=== PATIENT | female | born 1955 | race Caucasian/White ===

== ENCOUNTER → 2020-08-07 11:59 | Outpatient (BNVA) | payer MEDICARE, SELFPAY | PROVIDERS: Visit Provider Nurse Practitioner Family | DX: E55.9 Vitamin D deficiency, unspecified (principal); E03.9 Hypothyroidism, unspecified; E78.2 Mixed hyperlipidemia; Z79.899 Other long term (current) drug therapy | CPT/HCPCS: 80053; 80061; 81003; 82306; 83036; 83735; 84100; 84443; 85025 ==

== ENCOUNTER → 2020-08-25 11:03 | Outpatient (BNVA) | payer MEDICARE, OTHER, SELFPAY | PROVIDERS: Visit Provider Internal Medicine | DX: E03.9 Hypothyroidism, unspecified (principal); E78.2 Mixed hyperlipidemia; R63.5 Abnormal weight gain; Z78.0 Asymptomatic menopausal state | CPT/HCPCS: 99204 ==

== ENCOUNTER → 2020-09-15 08:17 | Outpatient (BNVA) | payer MEDICARE, OTHER, SELFPAY | PROVIDERS: Visit Provider Internal Medicine | DX: E03.9 Hypothyroidism, unspecified (principal); R63.5 Abnormal weight gain; Z78.0 Asymptomatic menopausal state | CPT/HCPCS: 82530; 82570 ==

== ENCOUNTER 2020-10-14 15:20 | Outpatient (CLI) | payer MEDICARE, OTHER, SELFPAY ==
--- NOTE | 2020-10-14 15:45 | XR_ITS ---
WS: [id number] SCREENING DEXA SCAN [employer] CLINICAL INFORMATION: assess for osteoporosis COMPARISON: None. FINDINGS: The L1-L4 bone mineral density measures 1.033 g/cm2. This corresponds to a T score score of -1.2 and Z score of -0.7. Left femoral neck bone mineral density measures 0.864 g/cm2. This corresponds to a T score of -1.1 an d Z score of -0.7. Right femoral neck bone mineral density measures 0.861 g/cm2. This corresponds to a T score -1.2of an d Z score of -0.7. Mean femoral neck bone mineral density measures 0.863 g/cm2. This corresponds to a T score of -1.2 an d Z score of -0.7. XR/XR DEXA axial skeleton* [id number] IMPRESSION: Osteopenia in the lumbar spine and femoral necks. Patient's FRAX calculated 10 year probability for major osteoporotic fracture i s 10.1 % and osteoporotic hip fracture is 1.5%.
== END 2020-10-14 15:21 | disposition home or self-care (01) ==
LOC: RADWPI 15:27
PROVIDERS: PCP Nurse Practitioner Family; Visit Provider Internal Medicine
DX: Z78.0 Asymptomatic menopausal state (principal); R63.5 Abnormal weight gain; E03.9 Hypothyroidism, unspecified; M85.88 Other specified disorders of bone density and structure, other site
CPT/HCPCS: 77080; 84439; 84443

== ENCOUNTER → 2021-02-18 10:54 | Outpatient (BNVA) | payer MEDICARE, OTHER, SELFPAY | PROVIDERS: PCP Nurse Practitioner Family; Visit Provider Nurse Practitioner Family | DX: E55.9 Vitamin D deficiency, unspecified (principal); E03.9 Hypothyroidism, unspecified; E78.2 Mixed hyperlipidemia; Z79.899 Other long term (current) drug therapy | CPT/HCPCS: 80053; 80061; 81003; 82306; 83036; 84439; 84443; 84481; 85025 ==

== ENCOUNTER 2021-04-01 11:59 | Outpatient (CLI) | payer MEDICARE, OTHER, SELFPAY ==
[2021-04-01 12:59] LABS: Basophils % 0.7 %; Eosinophils # 0.1 10^3/uL (0.0-0.8); Eosinophils % 1.8 %; Hematocrit 48.9 % (37.0-47.0); Hemoglobin 15.3 g/dL (11.5-15.3); Lymphocytes # 2.1 10^3/uL (0.8-4.8); Lymphocytes % 35.6 %; Mean Corpuscular HGB Conc 31.3 g/dL (30.0-36.0); Mean Corpuscular Hemoglobin 27.3 pg (28.0-34.0); Mean Corpuscular Volume 87.2 fL (81-99); Mean Platelet Volume 9.9 fL (7.4-10.4); Monocytes # 0.5 10^3/uL (0.2-0.9); Monocytes % 8.2 %; Neutrophils # 3.22 10^3/uL (1.8-7.7); Neutrophils % 53.5 %; Nucleated Red Blood Cells % 0 %; Platelet Count 269 10^3/cmm (130-400); Red Blood Count 5.61 10^6/uL (4.1-5.3); Red Cell Distribution Width 12.9 % (12.1-15.1)
[2021-04-02 16:42] LABS: Alternaria Alternata (M6) Ige 1.86 kU/L; Alternaria Class 2; Bermuda Class 0; Bermuda Grass (G2) Ige <0.10 kU/L; Cat Dander (E1) Ige <0.10 kU/L; Cat Dander Class 0; Common Ragweed (Short) (W1) Ig 0.21 kU/L; D. Farinae Class 0; Dermatophagoides Class 0; Dermatophagoides Farinae (D2) <0.10 kU/L; Dermatophagoides Pteronyssinus <0.10 kU/L; Dog Dander (E5) Ige <0.10 kU/L; Dog Dander Class 0; Elm (T8) Ige <0.10 kU/L; Elm Class 0; English Plantain (W9) Ige <0.10 kU/L; English Plantain Class 0; House Dust (Greer) (H1) Ige <0.10 kU/L; House Dust (Hollister- Stier) <0.10 kU/L; House Dust Class 0; Immunoglobulin E 63 kU/L (<OR=114); Johnson Grass (G10) Ige <0.10 kU/L; Johnson Grass Cl 0; June Grass Class 0; June Grass(Kentucky Blue) (G8) <0.10 kU/L; Lamb'S Quarters (Goose Foot) <0.10 kU/L; Lamb'S Quarters Class 0; Maple (Box Elder) (T1) Ige <0.10 kU/L; Maple Class 0; Meadow Fescue (G4) Ige <0.10 kU/L; Meadow Fescue Class 0; Mucor Racemosus Class 0; Oak (T7) Ige <0.10 kU/L; Oak Class 0; Orchard Grass (Cocksfoot) (G3) <0.10 kU/L; Penicillium Class 0; Penicillium Notatum (M1) Ige <0.10 kU/L; Perennial Rye Grass (G5) Ige <0.10 kU/L; Perennial Rye Grass Class 0; Ragweeed Class 0/1; Rough Marsh Elder (W16) Ige <0.10 kU/L; Rough Marsh Elder Class 0; Sweet Vernal Class 0; Sweet Vernal Grass (G1) Ige <0.10 kU/L; Timothy Grass (G6) Ige <0.10 kU/L; Timothy Grass Class 0
[2021-04-02 18:23] LABS: Immunoglobulin E 67 kU/L (<OR=114)
[2021-04-05 22:28] LABS: Aspergillus Fumigatus, Igg Ab, 122 mg/L (<=102)
== END 2021-04-01 12:00 | disposition home or self-care (01) ==
PROVIDERS: PCP Nurse Practitioner Family; Visit Provider Internal Medicine Pulmonary Disease
DX: J45.909 Unspecified asthma, uncomplicated (principal); R06.00 Dyspnea, unspecified
CPT/HCPCS: 36415; 82785; 85025; 86003

== ENCOUNTER → 2021-05-21 15:31 | Outpatient (BNVA) | payer MEDICARE, OTHER, SELFPAY | PROVIDERS: PCP Nurse Practitioner Family; Visit Provider Internal Medicine Pulmonary Disease | DX: Z20.822 Contact with and (suspected) exposure to COVID-19 (principal) | CPT/HCPCS: 87635 ==

== ENCOUNTER 2021-05-24 10:54 | Outpatient (CLI) | payer MEDICARE, OTHER, SELFPAY ==
--- NOTE | 2021-05-24 14:01 | PFTS_ITS ---
Date of Study:05/24/21 Date of Dictation: MECHANICS: Forced vital capacity (FVC) is normal. Forced expiratory volume in one second (FEV1) is normal. FEV1/FVC is normal. FLOW VOLUME LOOP: Normal. LUNG VOLUMES: Total lung capacity (TLC) is reduced. Residual volume (RV) is reduced. DIFFUSING CAPACITY FOR CARBON MONOXIDE: Mildly reduced. INTERPRETATION: The postbronchodilator spirometry is normal. There is a significant postbronchodilator response. Lung volumes are consistent with mild restriction. Gas exchange (DLCO) is mildly reduced. The pulmonary function test is very suggestive of reversible airflow obstruction. MTDD
== END 2021-05-24 10:55 | disposition home or self-care (01) ==
PROVIDERS: PCP Nurse Practitioner Family; Visit Provider Internal Medicine Pulmonary Disease
DX: R06.00 Dyspnea, unspecified (principal)
CPT/HCPCS: 94060; 94726; 94729; J7611

== ENCOUNTER → 2021-07-28 11:14 | Outpatient (BNVA) | payer MEDICARE, OTHER, SELFPAY | PROVIDERS: PCP Nurse Practitioner Family; Visit Provider Nurse Practitioner Family | DX: L98.9 Disorder of the skin and subcutaneous tissue, unspecified (principal); E03.9 Hypothyroidism, unspecified; E78.5 Hyperlipidemia, unspecified; E55.9 Vitamin D deficiency, unspecified; B35.1 Tinea unguium; Z79.899 Other long term (current) drug therapy | CPT/HCPCS: 80053; 80061; 81003; 82306; 83036; 84439; 84443; 85025 ==

== ENCOUNTER → 2022-06-29 08:56 | Outpatient (BNVA) | payer OTHER, MEDICARE, SELFPAY | PROVIDERS: PCP Nurse Practitioner Family; Visit Provider Nurse Practitioner | DX: M25.562 Pain in left knee (principal) | CPT/HCPCS: 73562 ==

== ENCOUNTER → 2022-08-09 14:36 | Outpatient (BNVA) | payer OTHER, MEDICARE, SELFPAY | PROVIDERS: PCP Nurse Practitioner; Visit Provider Nurse Practitioner | DX: E03.9 Hypothyroidism, unspecified (principal); L65.9 Nonscarring hair loss, unspecified | CPT/HCPCS: 84443 ==

== ENCOUNTER 2022-08-30 10:26 | Outpatient (CLI) | payer OTHER, SELFPAY ==
--- NOTE | 2022-08-30 11:00 | MR_ITS ---
WS: [id number] MRI LEFT KNEE HISTORY: Anterior knee pain. COMPARISON: Radiograph 06/29/2022 Anterior cruciate ligament: Mild mucoid degeneration. No tear. Posterior cruciate ligament: Intact. Medial collateral ligament: Mild MCL sprain. No full thickness tear. Posterior lateral corner structures: Intact. Medial menisci: Increased signal in the posterior horn but does not extend to the articular surface. Lateral meniscus: Intrasubstance degeneration in the anterior horn. The increased signal does not ext end to an articular surface. Extensor mechanism: Distal quadriceps tendon and patellar tendons are intact. Fluid and soft tissue: Small joint effusion. Small Reyes's cyst. Osseous and articular structures: Patellofemoral compartment: Severe patellofemoral joint space narrowing. Mild lateral subluxation of the patella. Loss of cartilage. There is cartilage loss involving both the femoral and patellar side of the joint space. Medial compartment: Mild narrowing of the joint space. Mild diffuse chondromalacia. Small marginal os teophytes. No fracture. Lateral compartment: Mild narrowing of the lateral compartment with diffuse thinning and loss of cart ilage. No marrow edema. Varicosities are noted over the anterior knee. MR/MR knee LT wo con* [id number] IMPRESSION: 1. Severe patellofemoral osteoarthritis with mild lateral subluxation of the p atella. Complete loss of cartilage along the articular surfaces. 2. Mild narrowing of the medial and lateral compartments mild to moderate allie dromalacia. 3. Intrasubstance degeneration in the menisci but no definite tears. 4. Intrasubstance degeneration ACL. 5. Small Reyes's cyst.
== END 2022-08-30 10:27 | disposition home or self-care (01) ==
LOC: RAD 10:26
PROVIDERS: PCP Nurse Practitioner; Visit Provider Nurse Practitioner
DX: S86.919A Strain of unspecified muscle(s) and tendon(s) at lower leg level, unspecified leg, initial encounter (principal); M71.22 Synovial cyst of popliteal space [Baker], left knee; M17.12 Unilateral primary osteoarthritis, left knee; X58.XXXA Exposure to other specified factors, initial encounter
CPT/HCPCS: 73721

== ENCOUNTER → 2022-11-02 11:20 | Outpatient (BNVA) | payer MEDICARE, OTHER, SELFPAY | PROVIDERS: PCP Nurse Practitioner; Visit Provider Nurse Practitioner | DX: R50.9 Fever, unspecified (principal) | CPT/HCPCS: 87400 ==

== ENCOUNTER → 2022-12-13 10:22 | Outpatient (BNVA) | payer OTHER, SELFPAY | PROVIDERS: PCP Nurse Practitioner; Visit Provider Nurse Practitioner Family | DX: S89.92XA Unspecified injury of left lower leg, initial encounter (principal); W18.40XA Slipping, tripping and stumbling without falling, unspecified, initial encounter | CPT/HCPCS: 73560; 73565 ==

== ENCOUNTER → 2023-10-25 09:40 | Outpatient (BNVA) | payer MEDICARE, OTHER, BC, SELFPAY | PROVIDERS: PCP Nurse Practitioner; Visit Provider Nurse Practitioner Family | DX: E03.9 Hypothyroidism, unspecified (principal); E78.5 Hyperlipidemia, unspecified; Z79.899 Other long term (current) drug therapy; E55.9 Vitamin D deficiency, unspecified; E78.2 Mixed hyperlipidemia; R53.83 Other fatigue | CPT/HCPCS: 80053; 80061; 82306; 83036; 84443; 85025 ==

== ENCOUNTER → 2023-11-23 10:48 | Outpatient (BNVA) | payer MEDICARE, OTHER, SELFPAY | PROVIDERS: PCP Nurse Practitioner; Visit Provider Nurse Practitioner Family | DX: D22.5 Melanocytic nevi of trunk (principal); L57.8 Other skin changes due to chronic exposure to nonionizing radiation; L81.4 Other melanin hyperpigmentation; B07.0 Plantar wart | CPT/HCPCS: 99213 ==

== ENCOUNTER → 2023-12-05 13:14 | Outpatient (BNVA) | payer MEDICARE, OTHER, SELFPAY | PROVIDERS: Absent Provider Family Medicine Adult Medicine; PCP Nurse Practitioner Family; Visit Provider Podiatrist Foot & Ankle Surgery | DX: B07.9 Viral wart, unspecified (principal) | CPT/HCPCS: 17110; 99203 ==

== ENCOUNTER → 2024-01-23 13:09 | Outpatient (BNVA) | payer MEDICARE, OTHER, SELFPAY | PROVIDERS: Absent Provider Family Medicine Adult Medicine; PCP Nurse Practitioner Family; Visit Provider Student in an Organized Health Care Education/Training Program | DX: M17.0 Bilateral primary osteoarthritis of knee | CPT/HCPCS: 20610; 73560; 73565; 99214; J3301 ==

== ENCOUNTER → 2024-05-14 11:08 | Outpatient (BNVA) | payer MEDICARE, OTHER, SELFPAY | PROVIDERS: PCP Nurse Practitioner Family; Visit Provider Student in an Organized Health Care Education/Training Program | DX: M17.0 Bilateral primary osteoarthritis of knee (principal); Z01.818 Encounter for other preprocedural examination | CPT/HCPCS: 99214 ==

== ENCOUNTER → 2024-06-19 09:34 | Outpatient (BNVA) | payer MEDICARE, OTHER, SELFPAY | PROVIDERS: PCP Nurse Practitioner Family; Visit Provider Student in an Organized Health Care Education/Training Program | DX: Z01.818 Encounter for other preprocedural examination (principal); Z79.899 Other long term (current) drug therapy | CPT/HCPCS: 80053; 81000; 85025 ==

== ENCOUNTER 2024-06-25 09:43 | Outpatient (CLI) | payer MEDICARE, OTHER, SELFPAY ==
--- NOTE | 2024-06-25 10:00 | CT_ITS ---
WS: [id number] CT RIGHT knee, noncontrast HISTORY: RIGHT TOTAL KNEE ARTHROPLASTY TECHNIQUE: Protocol for [facility] total knee replacement has been obtained. This includes axial imaging th rough the RIGHT hip, RIGHT knee and RIGHT ankle. DLP: 979.01 mGy.cm COMPARISON: Knee radiograph 01/23/2024 Pelvis: Symmetric appearance of the hips. There is mild motion artifact. This is predominately affect ing the LEFT hip. Bone island in the RIGHT femoral head. RIGHT knee: Joint space narrowing. Lateral partial subluxation of the patella. There is near bone upo n bone in the lateral patellofemoral compartment. No significant joint effusion. There is a small Damaris er's cyst. Negative RIGHT ankle. CT/CT knee RT [facility] [id number] IMPRESSION: CT imaging provided for [facility] robotic total knee replacement.
== END 2024-06-25 09:44 | disposition home or self-care (01) ==
LOC: RAD 09:44
PROVIDERS: PCP Nurse Practitioner Family; Visit Provider Student in an Organized Health Care Education/Training Program
DX: M17.0 Bilateral primary osteoarthritis of knee (principal); Z01.818 Encounter for other preprocedural examination
CPT/HCPCS: 73700; 93005

== ENCOUNTER 2024-07-08 13:09 | Observation (INO) | payer MEDICARE, OTHER, SELFPAY ==
[2024-07-08] VITALS (17 sets, daily range): BP systolic 110–157; BP diastolic 67–115; PULSE 59–84; RESP 14–18; TEMP 36.2–36.6; O2SAT 93–98; BMI 38.5
[2024-07-08] MEDS: scopolamine 1.5 Patch 1 PATCH TRANSDERMA (08:17)
[2024-07-08] MEDS: lactated ringers 500 ML IV (08:23)
[2024-07-08] MEDS: acetaminophen 1,000 MG/100 ML PIGGYBACK 400 MG IV ×2 (08:24→16:43)
[2024-07-08] MEDS: ketorolac 30 mg/mL INJ IVP (08:25)
[2024-07-08 08:44] LABS: Basophils % 0.6 %; Eosinophils # 0.2 10^3/uL (0.0-0.8); Eosinophils % 2.9 %; Hematocrit 51.3 % (36-47); Lymphocytes # 1.5 10^3/uL (0.8-4.8); Lymphocytes % 29.4 %; Mean Corpuscular HGB Conc 32.9 g/dL (30-55); Mean Corpuscular Hemoglobin 29.5 pg (27-33); Mean Corpuscular Volume 89.7 fl (85-98); Mean Platelet Volume 9.9 fL (7.4-10.4); Monocytes # 0.5 10^3/uL (0.2-0.9); Neutrophils # 2.96 10^3/uL (1.8-7.7); Neutrophils % 56.7 %; Nucleated Red Blood Cells % 0 %; Platelet Count 250 10^3/cmm (157-399); Red Blood Count 5.72 10^6/uL (3.85-5.65); Red Cell Distribution Width 12.2 % (12.1-15.1); White Blood Count 5.21 10^3/uL (3.29-11.43)
[2024-07-08] MEDS: sodium chloride 0.9% 1,000 ML 30 ML IV (09:21)
[2024-07-08 09:27] LABS: Anion Gap 15.5 (5-19); Blood Urea Nitrogen 11 mg/dL (8-23); Calcium 9.2 mg/dL (8.5-10.5); Carbon Dioxide 25 mmol/L (22-29); Chloride 106 mmol/L (98-107); Creatinine Clr Calc Pharmacy 71.6061; Glomerular Filtration Rate 99.1 mL/min (90-130); Glucose 108 mg/dL (65-115); Osmolality Calculated 294 mOsm/kg (285-295); Potassium 4.5 mmol/L (3.5-5.1); Sodium 142 mmol/L (136-145)
--- NOTE | 2024-07-08 09:35 | P.ANESASSM_ITS ---
Pre-Anesthetic Assessment Height/Weight: Height 1.57 m Weight 95.708 kg Temp Pulse Resp BP Pulse Ox O2 Del Method 97.6 F 70 18 157/87 94 Room Air 07/08/24 08:05 07/08/24 09:21 07/08/24 09:21 07/08/24 09:21 07/08/24 09:21 07/08/24 09:21 Operation Date: 07/08/24 09:35 Proposed Procedures p Balta Robot Total Knee Arthroplasty(Right) - Philip Browne DO Familial anesthetic complications: None Was Beta Golden taken within 24 hours: N/A Was Clonidine taken within 24 hours: N/A Last intake: > 8 hrs Social Alcohol (glass of wine per night) and No alcohol Exam alert, oriented x 3, clear to auscultation bilaterally and regular rate & rhythm Airway Mallampati: Class II Pulmonary Chronic Obstructive Pulmonary Disease Metabolic Hyperlipidemia, Morbid Obesity and Thyroid Disease Anesthetic Plan ASA status: 3 Anesthesia: Regional (specify below) Risk of > 500 ml blood loss (7ml/kg in children): No Medications/Allergies Home Medications Medication Instructions Recorded Confirmed Last Taken Type coenzyme Q10 100 mg capsule 100 mg PO DAILY 08/07/20 07/05/24 07/06/24 History (CoQ-10) glucosamine sulfate 500 mg tablet 500 mg PO BID 08/07/20 07/05/24 07/06/24 History (Glucosamine) omega-3 fatty acids 1,000 mg 1,000 mg PO DAILY 08/07/20 07/05/24 07/01/24 History capsule (Fish Oil Concentrate) albuterol sulfate 2.5 mg/3 mL 2.5 mg inhalation Q4H PRN sob 04/01/21 07/05/24 Unknown History (0.083 %) solution for nebulization biotin 2,500 mcg capsule 5 mg PO DAILY 11/23/23 07/05/24 07/06/24 History calcium carbonate 600 mg-vitamin 600 cap PO DAILY 11/23/23 07/05/24 07/06/24 History D3 10 mcg (400 unit) capsule flaxseed oil-omega 3,6,9-fatty 1,300 cap PO DAILY 11/23/23 07/05/24 07/01/24 History acids 1,300 mg-670 mg-155 mg capsule mecobalamin (vitamin B12) 1,000 1,000 mcg PO DAILY 11/23/23 07/05/24 07/06/24 History mcg chewable tablet multivitamin 1 tab PO DAILY 11/23/23 07/05/24 07/06/24 History riboflavin (vitamin B2) 100 mg 100 mg PO DAILY 11/23/23 07/05/24 07/05/24 History tablet levothyroxine 112 mcg tablet 112 mcg PO DAILY 07/05/24 07/05/24 07/06/24 History montelukast 10 mg tablet 10 mg PO DAILY 07/05/24 07/05/24 07/06/24 History simvastatin 40 mg tablet 40 mg PO DAILY 07/05/24 07/05/24 07/05/24 History Allergies Allergy/AdvReac Type Severity Reaction Status Date / Time codeine Allergy Intermediate sick Verified 06/25/24 08:20 morphine Allergy Intermediate sick Verified 06/25/24 08:20 Opioids - Morphine Analogues Allergy Intermediate sick Verified 06/25/24 08:20 Penicillins Allergy rash Verified 06/25/24 08:20 tetanus and diphtheria Allergy ALGY-Redness Verified 06/25/24 08:20 toxoids of Skin bee Allergy anaphylaxis Uncoded 06/25/24 08:20 fire ants Allergy anaphylaxis Uncoded 06/25/24 08:20 Current Medications Generic Name Dose Route Start Last Admin Trade Name Freq PRN Reason Stop Dose Admin Sodium Chloride 1,000 mls @ 30 mls/hr 07/08/24 08:00 07/08/24 09:21 Sodium Chloride 0.9% IV 07/09/24 07:59 30 mls/hr .Q24H SONY Administration PFSH Anesthesia Medical History Osteoarthritis involving multiple joints on both sides of body bilateral knees, Seasonal allergic rhinitis COPD (chronic obstructive pulmonary disease) Vitamin D deficiency Hypothyroidism Mixed hyperlipidemia Surgical History H/O lumpectomy Right S/P breast biopsy, left Family History Mother Cancer breast Father Cancer lung CAD (coronary artery disease) Sister Cancer anal Sister Cancer Mother Cancer breast Father Cancer lung and bladder CAD (coronary artery disease) Sister Cancer rectal Sister Cancer melanoma or basal on breast bone Social History Smoking and tobacco/nicotine status: never used tobacco/nicotine Second hand smoke exposure: Yes Alcohol intake: current Alcohol type: wine Substance/Drug Use: never Lives independently: Yes Household members: spouse Marital status: service: No Current occupational status: retired Pets and animals: Yes Do you think of yourself as: Straight/Heterosexual Current gender identity: Female Data Anesthesia 07/08/24 08:28 07/08/24 09:00 Short CBC 07/08/24 Range/Units 08:28 WBC 5.21 (3.29-11.43) 10^3/uL Hgb 16.90 (11.27-16.99) g/dL Hct 51.3 H (36-47) % MCV 89.7 (85-98) fl Plt Count 250 (157-399) 10^3/cmm Neut % (Auto) 56.7 % Neut # (Auto) 2.96 (1.8-7.7) 10^3/uL BMP 07/08/24 07/08/24 08:28 09:00 Sodium Cancelled 142 Potassium Cancelled 4.5 Chloride Cancelled 106 Carbon Dioxide Cancelled 25 BUN Cancelled 11 Creatinine Cancelled 0.6 Glucose Cancelled 108 Calcium Cancelled 9.2 Cardiac Studies: 2 No Data to Display
--- NOTE | 2024-07-08 09:40 | ANES.PROC ---
Anesthesia Procedures Procedure/Date: 07/08/24 Nerve Block ^: Nerve Block 1: Main Anesthesia: spinal anesthesia block Time Out Performed: Yes Consent: requested by attending/covering physician, from patient, from other, risks and benefits reviewed and patient agrees to proceed Nerve block location: adductor canal (R) Anesthesia monitors applied: pulse oximetry, EKG, BP cuff and oxygen Nerve block position: supine Anesthetic Used: ropivicaine 0.5% (30 ml) and with decadron (4 mg) Ultrasound used to: recognize landmarks and visualize and ID femerol nerve Nerve Stimulator Used?: No Interscalene/Femoral BLK: 4 stimuplex 21 g needle used for position and inplane approach, visualize local anesthetic spread and no vascular puncture identified Injection: neg aspiration of heme Patient Tolerated Procedure: well Complications: none
--- NOTE | 2024-07-08 10:03 | W.PM.OPSFHP ---
Same Day Surgery H&P Indication for Procedure/HPI DATE OF PROCEDURE: July 08, 2024 CHIEF COMPLAINT/INDICATIONFOR SURGICAL PROCEDURE: Right knee degenerative joint disease PREOP DIAGNOSIS: Right knee degenerative joint disease PLANNED PROCEDURE: Operation Date: 07/08/24 09:35 Proposed Procedures p Balta Robot Total Knee Arthroplasty(Right) - Philip Browne DO Medications/Allergies* Home Medications Medication Instructions Recorded Confirmed Type coenzyme Q10 100 mg capsule 100 mg PO DAILY 08/07/20 07/05/24 History (CoQ-10) glucosamine sulfate 500 mg tablet 500 mg PO BID 08/07/20 07/05/24 History (Glucosamine) omega-3 fatty acids 1,000 mg 1,000 mg PO DAILY 08/07/20 07/05/24 History capsule (Fish Oil Concentrate) albuterol sulfate 2.5 mg/3 mL 2.5 mg inhalation Q4H PRN sob 04/01/21 07/05/24 History (0.083 %) solution for nebulization biotin 2,500 mcg capsule 5 mg PO DAILY 11/23/23 07/05/24 History calcium carbonate 600 mg-vitamin 600 cap PO DAILY 11/23/23 07/05/24 History D3 10 mcg (400 unit) capsule flaxseed oil-omega 3,6,9-fatty 1,300 cap PO DAILY 11/23/23 07/05/24 History acids 1,300 mg-670 mg-155 mg capsule mecobalamin (vitamin B12) 1,000 1,000 mcg PO DAILY 11/23/23 07/05/24 History mcg chewable tablet multivitamin 1 tab PO DAILY 11/23/23 07/05/24 History riboflavin (vitamin B2) 100 mg 100 mg PO DAILY 11/23/23 07/05/24 History tablet levothyroxine 112 mcg tablet 112 mcg PO DAILY 07/05/24 07/05/24 History montelukast 10 mg tablet 10 mg PO DAILY 07/05/24 07/05/24 History simvastatin 40 mg tablet 40 mg PO DAILY 07/05/24 07/05/24 History Allergies/Adverse Reactions Allergy/AdvReac Type Severity Reaction Status Date / Time codeine Allergy Intermediate sick Verified 06/25/24 08:20 morphine Allergy Intermediate sick Verified 06/25/24 08:20 Opioids - Morphine Analogues Allergy Intermediate sick Verified 06/25/24 08:20 Penicillins Allergy rash Verified 06/25/24 08:20 tetanus and diphtheria Allergy ALGY-Redness Verified 06/25/24 08:20 toxoids of Skin bee Allergy anaphylaxis Uncoded 06/25/24 08:20 fire ants Allergy anaphylaxis Uncoded 06/25/24 08:20 Current Medications: Generic Name Dose Route Start Last Admin Trade Name Freq PRN Reason Stop Dose Admin Sodium Chloride 1,000 mls @ 30 mls/hr 07/08/24 08:00 07/08/24 09:21 Sodium Chloride 0.9% IV 07/09/24 07:59 30 mls/hr .Q24H SONY Administration Pertinent History/Comorbid Conditions* Medical History (Updated 01/23/24 @ 14:21 by Philip Browne DO) Osteoarthritis involving multiple joints on both sides of body bilateral knees, Seasonal allergic rhinitis COPD (chronic obstructive pulmonary disease) Vitamin D deficiency Hypothyroidism Mixed hyperlipidemia Surgical History (Updated 11/23/23 @ 13:17 by Angel Ballard MD) H/O lumpectomy Right S/P breast biopsy, left Family History (Updated 04/01/21 @ 10:33 by Adriano Hollingsworth LPN) Father Mother CAD (coronary artery disease) Father Father Cancer Mother breast Father lung Sister anal Sister Mother breast Father lung and bladder Sister rectal Sister melanoma or basal on breast bone Social History Smoking and tobacco/nicotine status: never used tobacco/nicotine Second hand smoke exposure: Yes Alcohol intake: current Alcohol type: wine Substance/Drug Use: never Lives independently: Yes Household members: spouse Marital status: service: No Current occupational status: retired Pets and animals: Yes Do you think of yourself as: Straight/Heterosexual Current gender identity: Female Pertinent Exam Findings alert, oriented x 3, operative site marked and procedure specific exam findings Please refer to detailed orthopedic examination on 05/14/2024: Right knee Smooth knee range of motion. There is some crepitus underneath the patella. Tenderness along the patella. medial joint space pain, mild lateral. Stable with varus and valgus stress, but varus deformity of about 5 to 10 degrees is correctable on exam. Negative anterior drawer. 0 to roughly 120 degrees on both knees. crepitus on knee range of motion of the patella on the left knee. Smooth hip range of motion bilaterally. Recommendations Surgery/Procedure today Other Plans: Plan to proceed to the OR today for right total knee arthroplasty?Balta robotic assisted. Patient understands the ins and outs procedure the risk benefits complication alternatives of surgery through shared decision make elects proceed with surgical intervention all questions been answered at this time. She is clear the preoperative clearance process with her preoperative clinic team and is ready to proceed with surgical intervention no change in her health since last visit. All questions answered. Coding Level of Care Code Acute Code for Chg Fwfred
[2024-07-08] MEDS: ceFAZolin 2,000 MG in sodium chloride 0.9% (plus) 50 ML 100 MG IV ×2 (10:27→17:35)
[2024-07-08] MEDS: tranexamic acid 1,000 mg/10mL SDV 1000 MG IV (10:56)
[2024-07-08] MEDS: tranexamic acid 1,000 mg/10mL SDV 1000 MG XX (11:33)
[2024-07-08] MEDS: ROPivacaine 0.2% Premix 100 mL 200 MG INTRA-ARTI (11:33)
[2024-07-08] MEDS: EPINEPHrine 1 mg/mL INJ XX (11:33)
[2024-07-08] MEDS: ketorolac 30 mg/mL INJ XX (11:33)
[2024-07-08] MEDS: vancomycin 1,000 MG SDV 1000 MG XX (11:37)
--- NOTE | 2024-07-08 12:57 | P.BOP_ITS ---
Date of Procedure: 07/08/2024 Surgeon: Philip Browne DO [employer] Receptionist(s): Ab Browne PA-C Procedure(s) performed: Right total knee arthroplasty?Balta robotic assisted Findings of the procedure(s): Patient did have severe right knee degenerative joint disease underwent procedu re as planned without issues or complications. Estimated blood loss: 20 mL Specimen(s) removed: Right tibia femur and patellar bone cuts removed Post-operative diagnosis: Right knee degenerative joint disease
--- NOTE | 2024-07-08 12:58 | P.OP_ITS ---
Operative Report Date of procedure: July 08, 2024 Surgeon: Philip Browne DO Principal Administrative Clerk: Ab Browne PA-C: PA was necessary for assistance in this case with leg positioning retraction and protection of neurovascular structures as well as assistance in implantation wound closure and dressing application. Procedure: Preoperative diagnosis: Right knee degenerative joint disease Post-op diagnosis: Same Procedure done: Right total knee arthroplasty, cemented?robotic assisted Balta Implants: [place] triathlon size 3 femur CR cemented?Right [place] triathlon size? 3 tibia universal baseplate cemented Ulises triathlon asymmetric patella size 32 mm Ulises triathlon polyethylene 9mm Surgeon: Philip Browne DO Estimated blood?loss: 20 mL Tourniquet 63mins IV fluids: 1200 mL Urine output: 200 mL Complications: None Condition: stable Disposition: floor Brief History: Patient is a 68-year-old female with with chronic?Right knee degenerative joint disease.? Patient has been worked up in the outpatient setting in the orthopedic office at this point time through shared decision making given? [id number] arthritis as well as failed conservative treatment, and pt would?like to proceed with a?Right total knee arthroplasty.? Through shared decision making elected to proceed with surgical intervention for?Right total knee arthroplasty.? We talked about continued conservative treatment and surgical intervention as far as the risk benefits complications alternatives surgical and nonsurgical treatment options.? At this point time understanding patient risks with surgery he agrees to proceed with surgical intervention.? Once again? risk with surgery include but are not?limited to make it better make it worse blood clot, heart attack, stroke, on the table, infection, injury to nerves or vessels, persistent pain, arthrofibrosis, implant failure.? Understanding these risks patient agrees to proceed with surgical intervention consent was obtained in the office.? All questions answered. Procedure: Patient was seen and evaluated in the preoperative holding area.? Consent was reviewed and signed with patient with plan for?Right total knee arthroplasty.? All questions answered.? Correct extremity marked.? Patient seen and evaluated by the anesthesia department and once cleared for surgery was taken back to the operative suite.? Patient was placed into a supine position on the OR table.? All bony prominences were well-padded.? Patient was appropriately secured to the bed.? Patient underwent anesthesia per the anesthesia department.? Patient received spinal anesthesia and? Schmidt catheter was placed.? A nonsterile tourniquet was applied to the?Right thigh.? At this point in time a final timeout performed.? Patient received appropriate preoperative antibiotics and TXA. Next the?Right?lower extremity was then prepped and draped in standard orthopedic fashion. Esmarch tourniquet was used exsanguinate the?Right?lower extremity.? Tourniquet was insufflated to 250 mmHg. A standard anterior incision was made over midline of the knee.? Sharp scalpel excision through skin and subcutaneous tissue full-thickness skin flaps were made.? Fascia was elevated off of the extensor retinaculum was stable with medial parapatellar arthrotomy was then made.? The performed standard sequential releases..? Immediately on entry into the joint patient was found to have severe eburnated bone and tricompartmental arthritic changes noted.? With significant osteophyte formation.? Next the the patella was then stuffed and the knee was then flexed.?? Reuben was placed superiorly around the anterior aspect of the femur this was freed of synovium and I subsequently then placed by 2 femur pins to establish my femur arrays for the Balta robot.? These were then placed bicortically and? femur array was then appropriately secured with appropriate visualization.? Next attention was turned towards the tibial rays.? These were then drilled sequentially bicortically in parallel fashion and intraincisional.? I then placed my guide as well as my tibial array on in place.? This was appropriately secured and had excellent visualization with the Balta robot.? Next the tibial checkpoint as well as femur checkpoint were then placed.? At this point time I then subsequently established my head center as well as my medial?lateral malleoli as well as my checkpoints.? Next utilizing standard Balta technology I then mapped out the appropriate points and confirmation points around the femur as well as the tibia in standard fashion.? Once this was then done I then removed all osteophytes in preparation for dynamic testing.? All osteophytes were removed as well as I removed the ACL and the PCL was excised due to its significant tearing and degeneration noted.? At this point time the knee was brought into full extension and we performed our standard evaluation of our gap balancing stressing his?ligaments and extension as well as flexion appropriate adjustments were made to have appropriate gap balancing in both flexion and extension.? This plan for final counts.? We get a preoperative plan evaluating our implants which was a size 3 femur and a size 3 tibia.? Next we brought in the Balta robot and sequentially made our femur cuts.? All excess bony cuts were then removed.? Finally we made our tibial cut.? Once this was done a standard PCL retractor was then placed into this position I excised the medial and?lateral meniscus.? The tibial cut was then subsequently removed all excess bony debris was removed.? I then utilized a?lamina environmental laboratory technician and remove the posterior osteophytes.? At this point time sized the tibia and confirmed this was a size 3.? I utilized our blunt probe to establish rotation of tibial implant.? Once this was done I then placed my tibia size 3 trial in appropriate position and then subsequently placed tibial pins to hold this into place placed a size 9 mm poly as well as a size 3 femur which was appropriately impacted in place knee was then subsequently brought into extension. Trials were then assessed,? this was stable with varus valgus stress in extension as well as had symmetrical translation when brought into flexion demonstrating symmetrical gaps. I had excellent balance gaps in flexion and extension with varus and valgus stresses.? At this point I was satisfied with these implants these were then verified and opened on the back table size 3 tibia, size 3 femur,? size 9 mm polythickness.? We did confirm appropriate gap balancing and stresses as well as alignment utilizing? Balta and were satisfied with this plan.? ?At this point time with my trials in place I then towel clip the patella everted this made appropriate measurements subsequently utilizing freehand technique performed by patellar resurfacing this was confirmed to be appropriate resection and subsequently sized to be a 32 mm asymmetric.? My drill peg guides were then clamped and appropriate position and appropriate position in the patella for appropriate tracking and parallel with the joint.? Pegs were drilled trial implant was placed and the knee was then subsequently ranged and found to have excellent patellar tracking.? Femur pegs were then drilled.? All checkpoints as well as guidepins and arrays were removed and appropriate counts made.? Satisfied with our tibial placement rotation I then utilized the keel punch and prepped the tibia.? At this point time all of our trial implants were removed.? The wound bed? was thoroughly irrigated and dried and prepped for cementation.? Cement was mixed on the back table.? Once cement was ready this was then covered onto the tibia and the tibial baseplate was then impacted and all excess cement was removed.? Next the polyethylene was then impacted into place on the tibial baseplate.? Next cement was placed onto the femur as well as under the femur implants and impacted in to place and all excess cement was extruded and removed.? Knee was taken into full extension? to clear all excess cement was removed.? Warm saline was placed over the joint.? I then towel clip patella and dried for cementation. cemented the patella into place.? This was all clamped and the cement was allowed to cure.? Thorough irrigation performed with pulse?lavage.? I then placed my periarticular injection while the cement was curing.? Once cured the knee was taken through range of motion and had excellent stability and gaps were balanced in flexion and extension.? Tourniquet was then deflated. hemostasis satisfactory with electrocautery.? Vancomycin powder was placed for antibiotic prophylaxis. Next I then subsequently closed the capsule with Ethibond suture as well as a running strata fix suture.? Knee was then taken through range of motion 30 times.? Next the skin was then closed in?layered fashion of running stratifix sutures of deep and subcutenous tissue and skin.? ?closed in flexion and Prineo glue was then placed over the incision this allowed to cure.? Incision was covered with ojey, with ABDs soft roll and Daquan wrap.? Patient was then awakened from anesthesia and taken to PACU in stable condition. Disposition: Patient taken to PACU in stable condition will be admitted to the floor for pain control PT/OT weight-bear as tolerated?Right?lower extremity dressing changes as needed, DVT prophylaxis. Pain control. Patient will receive appropriate postoperative antibiotics. patient will be seen today by the internal medicine team for medical management.? Patient will follow up with the office in 2 weeks.? Patient understands agrees with current plan.? All questions answered.
--- NOTE | 2024-07-08 13:06 | PM.PACU ---
PACU note Narrative: Patient is a 68-year-old female that just underwent a right total knee arthroplasty. Pt transferred to PACU in stable condition. Dressing is dry. pt is awake and alert. pt can wiggle toes and plantarflex and dorsiflex foot. pt able to perform straight leg raise, Femoral nerve intact. Distal pulses are palpable toes are warm and well-perfused. Cap refill is normal and under 2 seconds. Sensation to foot is intact. Pain is controlled. Exam: awake Disposition: admitted
--- NOTE | 2024-07-08 13:16 | XR_ITS ---
WS: [id number] Examination: XR knee RT 1-2V 08424 Reason for Exam: POST OP Date: July 08, 2024 Comparison: January 23, 2024 Findings: Surgical changes of the total right knee prosthesis are noted. The components are intact. They're wel l-positioned and aligned. No fracture is seen. XR/XR knee RT 1-2V 89802 Impression: Satisfactory appearing total right knee prosthesis.
--- NOTE | 2024-07-08 13:35 | ANE.PACU2 ---
Inpatient post-anesthesia follow up: Airway intact: Yes Vital signs: Temperature 97.5 F Pulse Rate 74 Respiratory Rate 17 Blood Pressure 127/75 Pulse Oximetry 94 Oxygen Delivery Me thod Room Air Oxygen Flow Rate Fraction of Inspir ed Oxygen Hydration adequate: Yes Nausea and vomiting: No Pain level: 1 Mental status: Baseline
--- NOTE | 2024-07-08 13:59 | P.CONIM_ITS ---
Providers/Reason For Consult 2 Consulting Physician/Specialty*: raffy Austin Reason for Consult*: Hypothyroidism Attending Physician: Philip Browne DO Primary Care Provider: FARNSISCA Aguero History of Present Illness History of Present Illness Pleasant 68-year-old lady with history of hypothyroidism underwent elective right total knee arthroplasty due to degenerative joint disease. Medicine was asked to consult due to history of hypothyroidism. Surgery otherwise uneventful, EBL 20 cc, she reports she is doing well postoperatively. Denies trouble breathing, no chest pain or pressure. Review of Systems 2 Const: Denies: fever(s), chills, body aches or malaise Eyes: Denies: change in vision, eye discomfort or eye redness ENMT: Denies: throat pain, oral sores or ear or mastoid pain Card: Denies: chest pain, edema, pre-syncope or dyspnea on exertion Resp: Denies: dyspnea, productive cough, change in phlegm color or hemoptysis GI: Denies: abdominal pain, nausea, vomiting, diarrhea, constipation, hematochezia or melena : Denies: flank pain, urinary frequency or hematuria Musc: Reports: joint pain; Denies: back pain, joint swelling or joint redness Neuro: Denies: headache(s) Medications/Allergies Home Medications Medication Instructions Recorded Confirmed Last Taken Type coenzyme Q10 100 mg capsule 100 mg PO DAILY 08/07/20 07/05/24 07/06/24 History (CoQ-10) glucosamine sulfate 500 mg tablet 500 mg PO BID 08/07/20 07/05/24 07/06/24 History (Glucosamine) omega-3 fatty acids 1,000 mg 1,000 mg PO DAILY 08/07/20 07/05/24 07/01/24 History capsule (Fish Oil Concentrate) albuterol sulfate 2.5 mg/3 mL 2.5 mg inhalation Q4H PRN sob 04/01/21 07/05/24 Unknown History (0.083 %) solution for nebulization biotin 2,500 mcg capsule 5 mg PO DAILY 11/23/23 07/05/24 07/06/24 History calcium carbonate 600 mg-vitamin 600 cap PO DAILY 11/23/23 07/05/24 07/06/24 History D3 10 mcg (400 unit) capsule flaxseed oil-omega 3,6,9-fatty 1,300 cap PO DAILY 11/23/23 07/05/24 07/01/24 History acids 1,300 mg-670 mg-155 mg capsule mecobalamin (vitamin B12) 1,000 1,000 mcg PO DAILY 11/23/23 07/05/24 07/06/24 History mcg chewable tablet multivitamin 1 tab PO DAILY 11/23/23 07/05/24 07/06/24 History riboflavin (vitamin B2) 100 mg 100 mg PO DAILY 11/23/23 07/05/24 07/05/24 History tablet levothyroxine 112 mcg tablet 112 mcg PO DAILY 07/05/24 07/05/24 07/06/24 History montelukast 10 mg tablet 10 mg PO DAILY 07/05/24 07/05/24 07/06/24 History simvastatin 40 mg tablet 40 mg PO DAILY 07/05/24 07/05/24 07/05/24 History Allergies Allergy/AdvReac Type Severity Reaction Status Date / Time codeine Allergy Intermediate sick Verified 06/25/24 08:20 morphine Allergy Intermediate sick Verified 06/25/24 08:20 Opioids - Morphine Analogues Allergy Intermediate sick Verified 06/25/24 08:20 Penicillins Allergy rash Verified 06/25/24 08:20 tetanus and diphtheria Allergy ALGY-Redness Verified 06/25/24 08:20 toxoids of Skin bee Allergy anaphylaxis Uncoded 06/25/24 08:20 fire ants Allergy anaphylaxis Uncoded 06/25/24 08:20 Current Medications Generic Name Dose Route Start Last Admin Trade Name Freq PRN Reason Stop Dose Admin Sodium Chloride 1,000 mls @ 30 mls/hr 07/08/24 08:00 07/08/24 11:52 Sodium Chloride 0.9% IV 07/09/24 07:59 Infused .Q24H SONY Infusion PFSH Acute 2 PFSH: Medical History Osteoarthritis involving multiple joints on both sides of body bilateral knees, Seasonal allergic rhinitis COPD (chronic obstructive pulmonary disease) Vitamin D deficiency Hypothyroidism Mixed hyperlipidemia Surgical History H/O lumpectomy Right S/P breast biopsy, left Family History Mother Cancer breast Father Cancer lung CAD (coronary artery disease) Sister Cancer anal Sister Cancer Mother Cancer breast Father Cancer lung and bladder CAD (coronary artery disease) Sister Cancer rectal Sister Cancer melanoma or basal on breast bone Social History Smoking and tobacco/nicotine status: never used tobacco/nicotine Second hand smoke exposure: Yes Alcohol intake: current Alcohol type: wine Substance/Drug Use: never Lives independently: Yes Household members: spouse Marital status: service: No Current occupational status: retired Pets and animals: Yes Do you think of yourself as: Straight/Heterosexual Current gender identity: Female Vitals/I&O/Wt Last Vital Signs Temp 97.5 F L 07/08/24 13:30 Pulse 74 07/08/24 13:30 Resp 17 07/08/24 13:30 BP 127/75 07/08/24 13:30 Pulse Ox 94 07/08/24 13:30 O2 Del Method Room Air 07/08/24 13:30 07/07/24 07/08/24 07/08/24 22:59 06:59 14:59 Intake Total 1999 / 1999 Output Total 220 / 220 Balance 1780 / 1780 Weight last 48 hrs Weight 95.708 kg Physical Exam 2 Narrative: Accompanied by her . Const: COMMON NORMALS: patient oriented x3 and alert GENERAL APPEARANCE: c ooperative ORIENTATION/CONSCIOUSNESS: Yes awake HENMT: COMMON NORMALS: oropharynx normal Neck/C-Spine: COMMON NORMALS: no JVD Resp: COMMON NORMALS: normal respiratory effort and clear to auscultation bilaterally AUSCULTATION: clear to auscultation bilaterally Cardio: COMMON NORMALS: no JVD, regular rhythm, S1 normal heart sound present, S2 normal heart sound present and No murmurs present (Cardio) RHYTHM: regular rhythm HEART SOUNDS: S1 normal heart sound present and S2 normal heart sound present GI: COMMON NORMALS: Normal to inspection, nondistended, normoactive bowel sounds present, Soft to palpation and non-tender PALPATION: Yes Soft to palpation Extremity: NARRATIVE EXTREMITY EXAM: Postoperative dressing. Neuro: COMMON NORMALS: patient oriented x3 SENSORIUM/ORIENTATION: Yes alert Skin: COMMON NORMALS: no rashes or lesions noted GENERAL SKIN EXAM: no rashes or lesions noted Urinary Catheter Management: Schmidt: Cath Placed During This Visit: yes Urinary Catheter Date of Insertion: 07/08/24 Urinary Catheter Time of Insertion: 10:51 Data 07/08/24 08:28 07/08/24 09:00 A&P Assessment and plan (1) Hypothyroidism: Continue levothyroxine. Reviewed prior TSH, last TSH from 10/25/2023. 1.1. Follow-up TSH. Does not endorse symptoms of hypo or hyperthyroidism. Qualifiers: Hypothyroidism type: acquired Qualified Code(s): E03.9 - Hypothyroidism, unspecified (2) S/P total knee arthroplasty: Status post total knee arthroplasty right knee due to DJD, EBL 20 cc. She reports he is doing well postoperatively. Denies shortness of breath, chest pain. Reviewed CBC, CMP, knee x-ray. Discussed with orthopedic, reviewed orthopedic note. Plans to start anticoagulation tomorrow. Pending assessment by therapy, overall plan for return home. Discussed with patient and . Add incentive spirometer. Pain control may pose some difficulty with history of getting sick with morphine and codeine. Tylenol as needed. Has tramadol as needed, IV Dilaudid as needed for severe breakthrough pain. Plan COPD: Not in exacerbation. DuoNebs as needed. Continue montelukast. Hyperlipidemia: Continue simvastatin. Consult Attestations 2 Medical Necessity Statement: Continue postoperative management after right total hip arthroplasty in a lady with underlying hypothyroidism, COPD, intolerance to multiple pain medications. and High MDM includes amount and/or complexity of data reviewed/ordered [ previous or external records, resulted lab(s)/test(s), ordered lab(s)/test(s) and other healthcare professional discussion] and described risk of complication, morbidity or mortality of management as documented Diagnoses Acquired hypothyroidism E03.9 Hypothyroidism type: acquired S/P total knee arthroplasty Z96.659
[2024-07-08 14:47] LABS: Thyroid Stimulating Hormone 1.04 uIU/mL (0.27-4.20)
[2024-07-08] MEDS: docusate sodium 100 mg Capsule PO (17:32)
[2024-07-08] MEDS: mupirocin oint 22 gm 1 APPLIC NASAL (17:32)
[2024-07-08] MEDS: iron polysaccharide complex 150 mg Capsule PO (17:32)
[2024-07-08] MEDS: sennosides-docusate Tablet 2 TAB PO (17:32)
[2024-07-08] MEDS: calcium carb-vit d 600mg/400unit 1 Tablet 1 EACH PO (17:32)
[2024-07-08] MEDS: TRAMadol 50 mg Tablet PO (17:33)
[2024-07-08] MEDS: chlorhexidine gluconate 0.12% Btl 473 mL 30 ML MUCOUS MEM ×2 (17:33→20:02)
[2024-07-08] MEDS: lactated ringers 1,000 ML 100 ML IV (17:33)
[2024-07-08] MEDS: tranexamic acid 1,000 MG/100 ML PREMIX 600 MG IV (20:01)
[2024-07-09] VITALS (7 sets, daily range): BP systolic 113–132; BP diastolic 61–78; PULSE 51–66; RESP 16–17; TEMP 36.5–36.7; O2SAT 95–99; BMI 38.7
[2024-07-09] MEDS: acetaminophen 1,000 MG/100 ML PIGGYBACK 400 MG IV ×2 (00:17→09:03)
[2024-07-09] MEDS: ceFAZolin 2,000 MG in sodium chloride 0.9% (plus) 50 ML 100 MG IV ×2 (03:12→11:45)
[2024-07-09] MEDS: ketorolac 30 mg/mL INJ 15 MG IVP (04:33)
[2024-07-09] MEDS: lactated ringers 1,000 ML 100 ML IV (04:50)
[2024-07-09 05:30] LABS: Basophils % 0.2 %; Eosinophils % 0.3 %; Hematocrit 40.5 % (36-47); Lymphocytes # 1.5 10^3/uL (0.8-4.8); Lymphocytes % 15.1 %; Mean Corpuscular HGB Conc 32.3 g/dL (30-55); Mean Corpuscular Hemoglobin 29.3 pg (27-33); Mean Corpuscular Volume 90.6 fl (85-98); Mean Platelet Volume 9.5 fL (7.4-10.4); Monocytes # 0.8 10^3/uL (0.2-0.9); Monocytes % 8.5 %; Neutrophils # 7.34 10^3/uL (1.8-7.7); Neutrophils % 75.5 %; Nucleated Red Blood Cells % 0 %; Platelet Count 215 10^3/cmm (157-399); Red Blood Count 4.47 10^6/uL (3.85-5.65); Red Cell Distribution Width 12.1 % (12.1-15.1); White Blood Count 9.73 10^3/uL (3.29-11.43)
[2024-07-09 05:55] LABS: Anion Gap 12.1 (5-19); Blood Urea Nitrogen 10 mg/dL (8-23); Calcium 8.7 mg/dL (8.5-10.5); Carbon Dioxide 25 mmol/L (22-29); Chloride 108 mmol/L (98-107); Creatinine Clr Calc Pharmacy 71.6061; Glucose 116 mg/dL (65-115); Osmolality Calculated 292 mOsm/kg (285-295); Potassium 4.1 mmol/L (3.5-5.1); Sodium 141 mmol/L (136-145)
[2024-07-09] MEDS: multivitamin therapeutic Tablet 1 TAB PO (09:02)
[2024-07-09] MEDS: docusate sodium 100 mg Capsule PO (09:02)
[2024-07-09] MEDS: iron polysaccharide complex 150 mg Capsule PO (09:02)
[2024-07-09] MEDS: sennosides-docusate Tablet 2 TAB PO (09:02)
[2024-07-09] MEDS: montelukast sodium 10 mg Tablet PO (09:02)
[2024-07-09] MEDS: atorvastatin 40 mg Tablet PO (09:02)
[2024-07-09] MEDS: levothyroxine 112 mcg Tablet PO (09:02)
[2024-07-09] MEDS: calcium carb-vit d 600mg/400unit 1 Tablet 1 EACH PO (09:02)
[2024-07-09] MEDS: oxyCODONE 5 mg IR Tab/Cap PO (09:02)
[2024-07-09] MEDS: apixaban 5 mg Tablet 2.5 MG PO (09:03)
--- NOTE | 2024-07-09 09:06 | PC.CHAP ---
Pastoral Care Encounter/Spiritual Assessment Type of Contact [] Declined soldering machine tender visit [] Patient/Family/Request visit [] Outpatient visit [] Follow-up visit [] Physician referral [] Code/Alert [x] Routine visit [] Staff referral [] Actively dying [] Patient sleeping [] Family support [] [] Out of room [] Palliative care [] [] Receiving care in room [] Pre-surgical visit [] Trauma [] Long length of stay [] ICU visit [] Other: Relational/Emotional Strength [x] Patient feels connected with others/family/visitors/staff [] Distress [] Loneliness/isolation [] Abandonment Spirituality of Patient [x] Person of Bev [] Attends Religion of their Bev [x] Believes in Prayer [] Reads Bible or Yarsanism materials [] There are Spiritual issues to be addressed Wildlife Policy Professional Interventions [x] Prayer [x] Active listening [] Non-anxious presence [x] Spiritual/emotional support [] Crisis/trauma care [] Spiritual counseling [] Bereavement support [] Provided bereavement packet [] Provided Bible/devotional materials [] Provided toy/stuffed animal, coloring book to patient or family member [] Provided Communion [] Anointing/[place] [] Salvation [x] Completed spiritual assessment [] Other: Impact on Illness or Injury [] Angry [] Fearful [] Anxious [] Often cries [] Exhaustion [] Unable to work [] Unable to attend restorationism [] Unable to walk/stand [] Unable to read [] Unable to drive [] Unable to eat/drink [] Unable to sleep [] Unable to be with family [] Patient intubated [] Other: Summary Time spent with patient 5 min
--- NOTE | 2024-07-09 11:40 | P.PN_ITS ---
Subjective 2 Subjective: She reports she is doing well today. No trouble breathing. No chest pain. Has gotten up and works with physical therapy. Pain under control. Vitals/I&O/Wt Last Vital Signs Temp 97.7 F 07/09/24 07:56 Pulse 58 L 07/09/24 07:56 Resp 16 07/09/24 09:02 BP 132/74 07/09/24 07:56 Pulse Ox 99 07/09/24 09:02 O2 Del Method Room Air 07/09/24 06:09 07/08/24 07/09/24 07/09/24 22:59 06:59 14:59 Intake Total 1090 / 3090 1390 / 4480 240 / 240 Output Total 800 / 1020 1700 / 2720 Balance 290 / 2070 -310 / 1760 240 / 240 Weight last 48 hrs Weight 96.026 kg Weight 95.708 kg Physical Exam 2 Narrative: Sitting up in the chair. Const: COMMON NORMALS: patient oriented x3 and alert GENERAL APPEARANCE: c ooperative ORIENTATION/CONSCIOUSNESS: Yes awake HENMT: COMMON NORMALS: oropharynx normal Neck/C-Spine: COMMON NORMALS: no JVD Resp: COMMON NORMALS: normal respiratory effort and clear to auscultation bilaterally AUSCULTATION: clear to auscultation bilaterally Cardio: COMMON NORMALS: no JVD, regular rhythm, S1 normal heart sound present, S2 normal heart sound present and No murmurs present (Cardio) RHYTHM: regular rhythm HEART SOUNDS: S1 normal heart sound present and S2 normal heart sound present GI: COMMON NORMALS: Normal to inspection, nondistended, normoactive bowel sounds present, Soft to palpation and non-tender PALPATION: Yes Soft to palpation Extremity: NARRATIVE EXTREMITY EXAM: Postoperative dressing. Cooling pack. Neuro: COMMON NORMALS: patient oriented x3 SENSORIUM/ORIENTATION: Yes alert Skin: COMMON NORMALS: no rashes or lesions noted GENERAL SKIN EXAM: no rashes or lesions noted Urinary Catheter Management: Schmidt: Cath Placed During This Visit: yes Reason for Continuing Indwelling Catheter: Perioperative Use in Selected Surgeries Urinary Catheter Date of Insertion: 07/08/24 Urinary Catheter Time of Insertion: 10:51 Data 07/09/24 05:24 07/09/24 05:24 A&P Assessment and plan (1) Hypothyroidism: Reviewed vitals, reviewed TSH. WNL. Continue levothyroxine. Continue levothyroxine. Does not endorse symptoms of hypo or hyperthyroidism. Qualifiers: Hypothyroidism type: acquired Qualified Code(s): E03.9 - Hypothyroidism, unspecified (2) S/P total knee arthroplasty: Reviewed vitals, CBC, BMP, orthopedic note. Hemoglobin 13.1. Platelets 215. Started on Eliquis. Worked with therapy, doing well. Stop LR. Possible discharge today as per orthopedics. Discussed with nursing, case preparer and liner. Not requiring IV Dilaudid. Plan COPD: Not in exacerbation. DuoNebs as needed. Continue montelukast. Hyperlipidemia: Continue simvastatin. Attestations 2 Medical Necessity Statement*: Planned discharge home today. and High MDM includes amount and/or complexity of data reviewed/ordered [ previous or external records, resulted lab(s)/test(s), ordered lab(s)/test(s) and other healthcare professional discussion] as documented Diagnoses Acquired hypothyroidism E03.9 Hypothyroidism type: acquired S/P total knee arthroplasty Z96.659
--- NOTE | 2024-07-09 12:15 | P.DS_ITS ---
Discharge Providers Date of Admission: 07/08/24 13:09 Date of Discharge: July 09, 2024 Attending Provider at Admission: Philip Browne DO Attending Provider at Discharge: Philip Browne DO Consults: Dr. Cohn?hospitalist Primary Care Provider: FRANSISCA Aguero Diagnoses at Discharge Discharge Diagnosis (1) Hypothyroidism: Status: Acute Qualifiers: Hypothyroidism type: acquired Qualified Code(s): E03.9 - Hypothyroidism, unspecified (2) S/P total knee arthroplasty: Status: Acute Reason for Visit Reason for Visit: M17.11 Brief History: Status post right TKA Hospital Course Hospital Course Patient presented to the preoperative holding area with plan for right total knee arthroplasty after patient has been worked up in the outpatient setting for failed conservative treatment of right knee degenerative joint disease. Once cleared by anesthesia for surgery patient subsequently was taken back to the operative suite underwent anesthesia per anesthesia department and then subsequently underwent a right total knee arthroplasty. Procedure was performed without any complications patient was taken to PACU in stable condition patient recovered well in PACU and then was admitted to the floor postoperatively internal medicine was consulted and on board for medical management and assistance with care. Patient received appropriate PT/OT, postoperative antibiotics, postoperative TXA, pain control, postoperative DVT prophylaxis. Elevation and ice. Patient encouraged for knee range of motion allowed weightbearing as tolerated to the operative lower extremity. Dressing was changed as needed, labs were monitored daily. Patient recovered well postoperatively and worked well and progressed well with therapy. It was determined on postoperative day 1 the patient was stable for discharge from an orthopedic standpoint and medicine. Patient was comfortable with discharge and plan was discharged home. Patient received appropriate discharge instructions a s well as pain medication and DVT prophylaxis postoperatively. Given appropriate instructions for dressing management. Patient will follow-up with Dr. Browne/orthopedics in the office in 2 weeks. All questions answered. Understand if there is any issues questions or concerns and contact the office. Physical Exam Narrative: Right knee: Examination right knee demonstrates dressings on in place is clean dry and intact normal postoperative swelling appreciated. Patient's compartments are soft compressible calf soft and nontender. Patient is able to wiggle toes plantarflex and dorsiflex ankle. Sensations intact light touch distally toes warm well-perfused brisk cap refill less than 2 seconds distal pulses palpable. Normal postoperative tenderness palpation about the right knee Diffusely. Urinary Catheter Management: Schmidt: Cath Placed During This Visit: yes Reason for Continuing Indwelling Catheter: Perioperative Use in Selected Surgeries Urinary Catheter Date of Insertion: 07/08/24 Urinary Catheter Time of Insertion: 10:51 Discharge Data Studies Completed and Pending Completed Studies During Hospitalization Category Date Time Status XR knee RT 1-2V 20700 Routine Exams 07/08/24 13:16 Completed Radiology Impressions Knee X-Ray 07/08/24 13:16 Impression: Satisfactory appearing total right knee prosthesis. Laboratory Results WBC 9.73 10^3/uL (3.29-11.43) 07/09/24 05:24 RBC 4.47 10^6/uL (3.85-5.65) 07/09/24 05:24 Hgb 13.10 g/dL (11.27-16.99) 07/09/24 05:24 Hct 40.5 % (36-47) 07/09/24 05:24 MCV 90.6 fl (85-98) 07/09/24 05:24 MCH 29.3 pg (27-33) 07/09/24 05:24 MCHC 32.3 g/dL (30-55) 07/09/24 05:24 RDW 12.1 % (12.1-15.1) 07/09/24 05:24 Plt Count 215 10^3/cmm (157-399) 07/09/24 05:24 MPV 9.5 fL (7.4-10.4) 07/09/24 05:24 Neut % (Auto) 75.5 % 07/09/24 05:24 Lymph % (Auto) 15.1 % 07/09/24 05:24 Edmonson % (Auto) 8.5 % 07/09/24 05:24 Eos % (Auto) 0.3 % 07/09/24 05:24 Baso % (Auto) 0.2 % 07/09/24 05:24 Neut # (Auto) 7.34 10^3/uL (1.8-7.7) 07/09/24 05:24 Lymph # (Auto) 1.5 10^3/uL (0.8-4.8) 07/09/24 05:24 Edmonson # (Auto) 0.8 10^3/uL (0.2-0.9) 07/09/24 05:24 Eos # (Auto) 0.0 10^3/uL (0.0-0.8) 07/09/24 05:24 Baso # (Auto) 0.0 10^3/uL (0.0-0.1) 07/09/24 05:24 Nucleated RBC % (auto) 0 % 07/09/24 05:24 Nucleated RBCs # 0.0 /100WBC 07/09/24 05:24 Sodium 141 mmol/L (136-145) 07/09/24 05:24 Potassium 4.1 mmol/L (3.5-5.1) 07/09/24 05:24 Chloride 108 mmol/L (98-107) H 07/09/24 05:24 Carbon Dioxide 25 mmol/L (22-29) 07/09/24 05:24 Anion Gap 12.1 (5-19) 07/09/24 05:24 BUN 10 mg/dL (8-23) 07/09/24 05:24 Creatinine 0.7 mg/dL (0.5-0.9) 07/09/24 05:24 GFR Calculation 83.0 mL/min (90-130) L 07/09/24 05:24 Glucose 116 mg/dL (65-115) H 07/09/24 05:24 Calculated Osmolality 292 mOsm/kg (285-295) 07/09/24 05:24 Calcium 8.7 mg/dL (8.5-10.5) 07/09/24 05:24 TSH 1.04 uIU/mL (0.27-4.20) 07/08/24 09:00 Blood Type O Positive 07/08/24 08:28 Rho(D) Type Rh positive 07/08/24 08:28 Antibody Screen Negative 07/08/24 08:28 Vitals Last Vital Signs Temp 98.1 F 07/09/24 13:29 Pulse 66 07/09/24 13:29 Resp 16 07/09/24 13:29 BP 119/78 07/09/24 13:29 Pulse Ox 96 07/09/24 13:29 O2 Del Method Room Air 07/09/24 11:06 Discharge Plan Discharge Patient Disposition: Home Condition: Stable Prescriptions: New ondansetron 4 mg tablet,disintegrating 4 mg PO Q8H PRN (Reason: nausea and vomiting) 3 Days Qty: 9 0RF Eliquis 2.5 mg tablet 2.5 mg PO BID 14 Days Qty: 28 0RF oxycodone 5 mg tablet 5 mg PO Q6H PRN (Reason: pain postop) 7 Days Qty: 28 0RF Continued omega-3 fatty acids [Fish Oil Concentrate] 1,000 mg capsule 1,000 mg PO DAILY coenzyme Q10 [CoQ-10] 100 mg capsule 100 mg PO DAILY glucosamine sulfate [Glucosamine] 500 mg tablet 500 mg PO BID Rx Instructions: administer with meals albuterol sulfate 2.5 mg /3 mL (0.083 %) solution for nebulization 2.5 mg inhalation Q4H PRN (Reason: sob) multivitamin Tablet 1 tab PO DAILY riboflavin (vitamin B2) 100 mg tablet 100 mg PO DAILY biotin 2,500 mcg capsule 5 mg PO DAILY calcium carbonate-vitamin D3 600 mg-10 mcg (400 unit) capsule 600 cap PO DAILY flaxseed-omega3,6,9-fatty acid 1,300-670-155 mg capsule 1,300 cap PO DAILY mecobalamin (vitamin B12) 1,000 mcg tablet,chewable 1,000 mcg PO DAILY levothyroxine 112 mcg tablet 112 mcg PO DAILY Rx Instructions: TAKE 1 TABLET DAILY simvastatin 40 mg tablet 40 mg PO DAILY Rx Instructions: TAKE 1 TABLET BY MOUTH EVERY DAY montelukast 10 mg tablet 10 mg PO DAILY Rx Instructions: TAKE 1 TABLET BY MOUTH EVERY DAY Discharge Orders: Discharge Order (Routine); Ordered 07/09/24 Ordered By: Philip Browne Other Ambulatory Orders: Physical Therapy Eval and Treat Outpatient (Order) Timeframe: 2 Days Facility: [facility] - Location: Physical Therapy [place] Ordered By: Philip Browne Referrals: [facility] [Other] (An appointment has been requested for OP PT if you have not heard from then in 24-48 hours to schedule please call to follow up. ) Philip Browne, [Physician] - 07/23/24 2:00 pm Discharge Diet: Regular Discharge Activity: Limit activity as instructed Patient Instructions: Oxycodone, Rapid Release (By mouth), Ondansetron (By mouth), Apixaban (By mouth), Acute Wound Care (DC), Total Knee Replacement (GEN), Joint Replacement Stoplight, Post Anesthesia Care Activity Restrictions/Additional Instructions: Orthopedic discharge instructions Lizbeth Dressing--Keep dressing on and dry. After 3 days you can remove some of the dressing and shower. disconnect battery pack when showering. Lizbeth dressing will stay on until follow up appt in 2 weeks. The battery pack for the dressing will at 5-7 days. Battery pack can be removed and discarded once batteries . . Patient may weight-bear as tolerate to the operative extremity Utilize crutches as needed Encourage knee range of motion Ice and elevate as needed for pain and swelling Take pain medication as prescribed Take antinausea medication as needed The prescribed Eliquis twice daily for the next 14 days for blood clot prevention May supplement for pain with ibuprofen [id number] as needed No baths or soaks Follow-up in the orthopedic office in 2 weeks Contact the office for any questions or concerns Discharge Attestations Time Spent in Discharge Care*: less than 30 min Quality Metrics Clinical Quality Measures [ No reported AMI, CVA or VTE this stay] Coding Level of Care Code Acute Code for Chg Fwd Diagnoses Acquired hypothyroidism E03.9 Hypothyroidism type: acquired S/P total knee arthroplasty Z96.659
[2024-07-09] MEDS: TRAMadol 50 mg Tablet PO (13:18)
== END 2024-07-09 13:27 | disposition home or self-care (01) ==
LOC: MEDSURG 13:10
PROVIDERS: Internal Medicine; Physician Assistant; Admitting Provider Student in an Organized Health Care Education/Training Program; PCP Nurse Practitioner Family; Visit Provider Student in an Organized Health Care Education/Training Program
PROC: 8E0Y0CZ Robotic Assisted Procedure of Lower Extremity, Open Approach (ICD-10-PCS; CPT 27447; principal; 2024-07-08 09:35)
DX: M17.11 Unilateral primary osteoarthritis, right knee (principal); E03.9 Hypothyroidism, unspecified; J44.9 Chronic obstructive pulmonary disease, unspecified; E78.2 Mixed hyperlipidemia; E66.01 Morbid (severe) obesity due to excess calories; Z68.38 Body mass index [BMI] 38.0-38.9, adult
CPT/HCPCS: 20985; 27447; 36415; 51702; 73560; 80048; 84443; 85025; 86850; 86900; 97110; 97116; 97161; 97165; 97530; C1713; C1776; G0378; J0131; J0171; J0690; J1100; J1885; J2371; J2795; J3010; J3370; J3490; J7030; J7120

== ENCOUNTER 2024-07-11 06:00 | Outpatient (RCR) | payer MEDICARE, OTHER, SELFPAY | END 2024-07-27 23:59 | disposition home or self-care (01) | LOC: WPT 06:00 | PROVIDERS: Visit Provider Student in an Organized Health Care Education/Training Program | DX: Z47.1 Aftercare following joint replacement surgery (principal); Z96.651 Presence of right artificial knee joint | CPT/HCPCS: 97110; 97112; 97161; 97530 ==

== ENCOUNTER → 2024-07-23 13:42 | Outpatient (BNVA) | payer MEDICARE, OTHER, SELFPAY | PROVIDERS: PCP Family Medicine Adult Medicine; Visit Provider Physician Assistant | DX: Z96.651 Presence of right artificial knee joint (principal) | CPT/HCPCS: 73560; 73565; 99024 ==

== ENCOUNTER 2024-07-28 06:00 | Outpatient (RCR) | payer MEDICARE, OTHER, SELFPAY | END 2024-08-26 23:59 | disposition home or self-care (01) | LOC: WPT 06:00 | PROVIDERS: PCP Family Medicine Adult Medicine; Visit Provider Student in an Organized Health Care Education/Training Program | DX: Z47.1 Aftercare following joint replacement surgery (principal); Z96.651 Presence of right artificial knee joint | CPT/HCPCS: 97110; 97112; 97530 ==

== ENCOUNTER 2024-08-27 06:00 | Outpatient (RCR) | payer MEDICARE, OTHER, SELFPAY | END 2024-09-26 23:59 | disposition home or self-care (01) | LOC: WPT 06:00 | PROVIDERS: PCP Family Medicine Adult Medicine; Visit Provider Student in an Organized Health Care Education/Training Program | DX: Z47.1 Aftercare following joint replacement surgery (principal); Z96.651 Presence of right artificial knee joint | CPT/HCPCS: 97110; 97112; 97530 ==

== ENCOUNTER → 2024-09-03 14:46 | Outpatient (BNVA) | payer MEDICARE, OTHER, SELFPAY | PROVIDERS: PCP Family Medicine Adult Medicine; Visit Provider Physician Assistant | DX: M17.0 Bilateral primary osteoarthritis of knee; Z96.651 Presence of right artificial knee joint | CPT/HCPCS: 73560; 73565; 99214 ==

== ENCOUNTER 2024-09-27 06:00 | Outpatient (RCR) | payer MEDICARE, OTHER, SELFPAY | END 2024-10-26 23:59 | disposition home or self-care (01) | LOC: WPT 06:00 | PROVIDERS: PCP Family Medicine Adult Medicine; Visit Provider Student in an Organized Health Care Education/Training Program | DX: Z47.1 Aftercare following joint replacement surgery (principal); Z96.651 Presence of right artificial knee joint | CPT/HCPCS: 97110; 97112; 97530 ==

== ENCOUNTER 2024-10-07 16:48 | Outpatient (CLI) | payer MEDICARE, OTHER, SELFPAY ==
--- NOTE | 2024-10-07 17:00 | CT_ITS ---
WS: [id number] CT LEFT knee, noncontrast HISTORY: M17.0 - Bilateral primary osteoarthritis of knee TECHNIQUE: Protocol for [facility] total knee replacement has been obtained. This includes axial imaging th rough the LEFT hip, LEFT knee and LEFT ankle. DLP: 957.50 mGy.cm COMPARISON: None available. Pelvis: Symmetric appearance of the hips. No bone destruction. Scattered sigmoid diverticulosis. LEFT knee: Marked lateral subluxation of the patella. There is bone upon bone of the patellar eminenc e and the lateral femoral condyle. Moderate narrowing of the joint spaces. No soft tissue mass. Small suprapatellar joint effusion. Moderate-sized Reyes's cyst. LEFT ankle: Negative. CT/CT knee [facility] [id number] IMPRESSION: CT imaging provided for [facility] robotic total knee replacement.
== END 2024-10-07 16:49 | disposition home or self-care (01) ==
LOC: RAD 16:50
PROVIDERS: PCP Family Medicine Adult Medicine; Visit Provider Student in an Organized Health Care Education/Training Program
DX: Z01.818 Encounter for other preprocedural examination (principal); M17.12 Unilateral primary osteoarthritis, left knee; S83.001A Unspecified subluxation of right patella, initial encounter; M71.22 Synovial cyst of popliteal space [Baker], left knee
CPT/HCPCS: 73700

== ENCOUNTER → 2024-10-08 14:23 | Outpatient (BNVA) | payer MEDICARE, OTHER, SELFPAY | PROVIDERS: PCP Family Medicine Adult Medicine; Visit Provider Physician Assistant | DX: M17.0 Bilateral primary osteoarthritis of knee; Z96.651 Presence of right artificial knee joint; Z01.818 Encounter for other preprocedural examination | CPT/HCPCS: 73560; 73565; 80053; 81003; 85025; 99213 ==

== ENCOUNTER 2024-11-04 10:11 | Observation (INO) | payer MEDICARE, OTHER, SELFPAY ==
[2024-11-04] VITALS (16 sets, daily range): BP systolic 99–149; BP diastolic 54–107; PULSE 62–90; RESP 15–18; TEMP 36.2–36.9; O2SAT 92–99; BMI 36.6
--- NOTE | 2024-11-04 06:17 | P.ANESASSM_ITS ---
Pre-Anesthetic Assessment Height/Weight: Height 5 ft 2 in Preop Diagnosis: Knee arthritis Operation Date: 11/04/24 07:00 Proposed Procedures p Balta Robot Total Knee Arthroplasty(Left) - Philip Browne DO Was Beta Golden taken within 24 hours: N/A Was Clonidine taken within 24 hours: N/A Social No alcohol and No tobacco Exam alert, oriented x 3, clear to auscultation bilaterally and regular rate & rhythm Airway Submandibular: within normal limits Cervical ROM: within normal limits Mallampati: Class II Dentition: full Anesthetic Plan ASA status: 3 Anesthesia: MAC and Regional (specify below) Other: No prior issues with anesthesia in the past Patient recently had her other knee done under spinal anesthesia and did well NPO since yesterday History of hypothyroidism on Synthroid COPD, very occasional inhaler use Labs from 10/08/2024 reviewed acceptable for procedure EKG showing sinus tachycardia with possible old anterior [place] Plan for spinal anesthetic with post induction adductor canal block Medications/Allergies Home Medications Medication Instructions Recorded Confirmed Last Taken Type coenzyme Q10 100 mg capsule 100 mg PO DAILY 08/07/20 11/04/24 11/03/24 History (CoQ-10) glucosamine sulfate 500 mg tablet 500 mg PO BID 08/07/20 11/04/24 11/03/24 History (Glucosamine) omega-3 fatty acids 1,000 mg 1,000 mg PO DAILY 08/07/20 10/31/24 10/26/24 History capsule (Fish Oil Concentrate) albuterol sulfate 2.5 mg/3 mL 2.5 mg inhalation Q4H PRN sob 04/01/21 10/31/24 Unknown History (0.083 %) solution for nebulization biotin 2,500 mcg capsule 5 mg PO DAILY 11/23/23 11/04/24 11/03/24 History calcium 600 mg (as 600 cap PO DAILY 11/23/23 11/04/24 11/03/24 History carbonate)-vitamin D3 10 mcg (400 unit) capsule flaxseed oil-omega 3,6,9-fatty 1,300 cap PO DAILY 11/23/23 11/04/24 11/03/24 History acids 1,300 mg-670 mg-155 mg capsule mecobalamin (vitamin B12) 1,000 1,000 mcg PO DAILY 11/23/23 11/04/24 11/03/24 History mcg chewable tablet multivitamin 1 tab PO DAILY 11/23/23 10/31/24 10/30/24 History riboflavin (vitamin B2) 100 mg 100 mg PO DAILY 11/23/23 11/04/24 11/03/24 History tablet levothyroxine 112 mcg tablet 112 mcg PO DAILY #90 tabs 10/17/24 11/04/24 11/03/24 Rx montelukast 10 mg tablet 10 mg PO DAILY #90 tabs 10/17/24 11/04/24 11/03/24 Rx simvastatin 40 mg tablet 40 mg PO DAILY #90 tabs 10/17/24 10/31/24 10/23/24 Rx Allergies Allergy/AdvReac Type Severity Reaction Status Date / Time codeine Allergy Intermediate sick Verified 11/04/24 06:03 morphine Allergy Intermediate sick Verified 11/04/24 06:03 Opioids - Morphine Analogues Allergy Intermediate sick Verified 11/04/24 06:03 Penicillins Allergy rash Verified 11/04/24 06:03 tetanus and diphtheria Allergy ALGY-Redness Verified 11/04/24 06:03 toxoids of Skin bee Allergy anaphylaxis Uncoded 11/04/24 06:03 fire ants Allergy anaphylaxis Uncoded 11/04/24 06:03 [facility] Anesthesia Medical History Osteoarthritis involving multiple joints on both sides of body bilateral knees, Seasonal allergic rhinitis COPD (chronic obstructive pulmonary disease) Vitamin D deficiency Hypothyroidism Mixed hyperlipidemia Surgical History H/O lumpectomy Right S/P breast biopsy, left Family History Mother Cancer breast Father Cancer lung CAD (coronary artery disease) Sister Cancer anal Sister Cancer Mother Cancer breast Father Cancer lung and bladder CAD (coronary artery disease) Sister Cancer rectal Sister Cancer melanoma or basal on breast bone Social History Smoking and tobacco/nicotine status: never used tobacco/nicotine Second hand smoke exposure: Yes Alcohol intake: current Alcohol type: wine Substance/Drug Use: never Lives independently: Yes Household members: spouse Marital status: service: No Current occupational status: retired Pets and animals: Yes Do you think of yourself as: Straight/Heterosexual Current gender identity: Female Data Anesthesia Cardiac Studies: No Data to Display
[2024-11-04] MEDS: sodium chloride 0.9% 1,000 ML 30 ML IV (06:40)
[2024-11-04] MEDS: acetaminophen 1,000 MG/100 ML PIGGYBACK 400 MG IV ×3 (06:43→21:35)
[2024-11-04] MEDS: ketorolac 30 mg/mL INJ IVP (06:48)
[2024-11-04 06:51] LABS: Basophils % 0.8 %; Eosinophils # 0.1 10^3/uL (0.0-0.8); Eosinophils % 2.5 %; Hematocrit 46.9 % (36-47); Lymphocytes # 1.7 10^3/uL (0.8-4.8); Lymphocytes % 32.3 %; Mean Corpuscular HGB Conc 31.8 g/dL (30-55); Mean Corpuscular Hemoglobin 28.5 pg (27-33); Mean Corpuscular Volume 89.7 fl (85-98); Mean Platelet Volume 9.6 fL (7.4-10.4); Monocytes # 0.6 10^3/uL (0.2-0.9); Monocytes % 11.9 %; Neutrophils # 2.66 10^3/uL (1.8-7.7); Neutrophils % 52.1 %; Nucleated Red Blood Cells % 0 %; Platelet Count 277 10^3/cmm (157-399); Red Blood Count 5.23 10^6/uL (3.85-5.65); Red Cell Distribution Width 13.2 % (12.1-15.1); White Blood Count 5.11 10^3/uL (3.29-11.43)
--- NOTE | 2024-11-04 06:57 | W.PM.OPSUD ---
Surgery/Procedure H&P Update DATE OF PROCEDURE: November 04, 2024 DATE H&P PERFORMED: 10/08/24 H&P UPDATE INFORMATION: I have reviewed H&P completed within last 30 days, I have examined patient prior to procedure and No changes to prior documentation CHANGES TO PREVIOUS DOCUMENTATION: no change in overall health since last office visit. ready to proceed with surgery today. all questions answered PREOP DIAGNOSIS: left Knee arthritis PRIMARY INDICATION FOR PROCEDURE: left knee DJD PLANNED PROCEDURE: Operation Date: 11/04/24 07:00 Proposed Procedures p Balta Robot Total Knee Arthroplasty(Left) - Philip Browne DO
[2024-11-04 07:07] LABS: Anion Gap 16.7 (5-19); Blood Urea Nitrogen 20 mg/dL (8-23); Calcium 9.9 mg/dL (8.5-10.5); Carbon Dioxide 24 mmol/L (22-29); Chloride 102 mmol/L (98-107); Creatinine Clr Calc Pharmacy 68.5357; Glomerular Filtration Rate 82.7 mL/min (90-130); Glucose 106 mg/dL (65-115); Osmolality Calculated 291 mOsm/kg (285-295); Potassium 3.7 mmol/L (3.5-5.1); Sodium 139 mmol/L (136-145)
[2024-11-04] MEDS: ceFAZolin 2,000 mg SDV 2000 MG IVP ×3 (07:09→22:43)
[2024-11-04] MEDS: tranexamic acid 1,000 mg/10mL SDV 1000 MG IV (07:10)
[2024-11-04] MEDS: VANCOMYCIN ADD-Vantage 1,000 MG VIAL 1000 MG XX (08:46)
[2024-11-04] MEDS: tranexamic acid 1,000 mg/10mL SDV 1000 MG XX (08:47)
[2024-11-04] MEDS: EPINEPHrine 1 mg/mL INJ XX (08:47)
[2024-11-04] MEDS: ketorolac 30 mg/mL INJ XX (08:47)
[2024-11-04] MEDS: ROPivacaine 0.2% Premix 100 mL 200 MG INTRA-ARTI (08:47)
--- NOTE | 2024-11-04 09:18 | W.PM.BPON ---
Date of Procedure: 11/04/2024 Surgeon: Philip Browne DO Screen Printing Paster(s): Ab Browne PA-C Procedure(s) performed: Left total knee arthroplasty?Balta robotic assisted Findings of the procedure(s): Left knee degenerative joint disease underwent procedure as planned without issues or complications Estimated blood loss: 25 mL Specimen(s) removed: Tibia femur and patellar bone cuts removed Post-operative diagnosis: Left knee degenerative joint disease
--- NOTE | 2024-11-04 09:19 | PM.OP ---
Operative Report Date of procedure: November 04, 2024 Surgeon: Philip Browne DO [employer]: Ab Browne PA-C: PA was necessary for assistance in this case with leg positioning retraction and protection of neurovascular structures as well as assistance in implantation wound closure and dressing application. Procedure: Preoperative diagnosis: Left knee degenerative joint disease Post-op diagnosis: Same Procedure done: Left total knee arthroplasty, cemented?robotic assisted Balta Implants: Hulbert triathlon size 3 femur CR cemented?left Hulbert triathlon size?2 tibia universal baseplate cemented Hulbert triathlon asymmetric patella size 29 mm Ulises triathlon polyethylene 10mm Surgeon: Philip Browne DO Estimated blood?loss: 25 mL Tourniquet 60minutes IV fluids: 1500 mL Urine output: 150 mL Complications: None Condition: stable Disposition: floor Brief History: Patient is a 69-year-old female with with chronic?left knee degenerative joint disease.? Patient has been worked up in the outpatient setting in the orthopedic office at this point time through shared decision making given? [id number] arthritis as well as failed conservative treatment, and pt would?like to proceed with a?left total knee arthroplasty.? Through shared decision making elected to proceed with surgical intervention for?left total knee arthroplasty.? We talked about continued conservative treatment and surgical intervention as far as the risk benefits complications alternatives surgical and nonsurgical treatment options.? At this point time understanding patient risks with surgery patient agrees to proceed with surgical intervention.? Once again? risk with surgery include but are not?limited to make it better make it worse blood clot, heart attack, stroke, on the table, infection, injury to nerves or vessels, persistent pain, arthrofibrosis, implant failure.? Understanding these risks patient agrees to proceed with surgical intervention consent was obtained.? All questions answered. Procedure: Patient was seen and evaluated in the preoperative holding area.? Consent was reviewed and signed with patient with plan for?left total knee arthroplasty.? All questions answered.? Correct extremity marked.? Patient seen and evaluated by the anesthesia department and once cleared for surgery was taken back to the operative suite.? Patient was placed into a supine position on the OR table.? All bony prominences were well-padded.? Patient was appropriately secured to the bed.? Patient underwent anesthesia per the anesthesia department.? Patient received spinal anesthesia and? Schmidt catheter was placed.? A nonsterile tourniquet was applied to the?left thigh.? At this point in time a final timeout performed.? Patient received appropriate preoperative antibiotics and TXA. Next the?left?lower extremity was then prepped and draped in standard orthopedic fashion. Esmarch tourniquet was used exsanguinate the?left?lower extremity.? Tourniquet was insufflated to 250 mmHg. A standard anterior incision was made over midline of the knee.? Sharp scalpel excision through skin and subcutaneous tissue full-thickness skin flaps were made.? Fascia was elevated off of the extensor retinaculum was stable with medial parapatellar arthrotomy was then made.? The performed standard sequential releases..? Immediately on entry into the joint patient was found to have severe eburnated bone and tricompartmental arthritic changes noted With significant osteophyte formation.? Next the the patella was then stuffed and the knee was then flexed.?? Reuben was placed superiorly around the anterior aspect of the femur this was freed of synovium and I subsequently then placed the 2 femur pins to establish my femur arrays for the Balta robot.? These were then placed bicortically and? femur array was then appropriately secured with appropriate visualization.? Next attention was turned towards the tibial rays.? These were then drilled sequentially bicortically in parallel fashion and intraincisional.? I then placed my guide as well as my tibial array on in place.? This was appropriately secured and had excellent visualization with the Balta robot.? Next the tibial checkpoint as well as femur checkpoint were then placed.? At this point time I then subsequently established my head center as well as my medial?lateral malleoli as well as my checkpoints.? Next utilizing standard Balta technology I then mapped out the appropriate points and confirmation points around the femur as well as the tibia in standard fashion.? Once this was then done I then removed all osteophytes in preparation for dynamic testing.? All osteophytes were removed as well as I removed the ACL and the PCL was excised due to its significant tearing and degeneration noted.? At this point time the knee was brought into full extension and we performed our standard evaluation of our gap balancing stressing his?ligaments and extension as well as flexion appropriate adjustments were made to have appropriate gap balancing in both flexion and extension.? Patient had a valgus deformity no flexion contracture. Underwent planning to correct patient's deformity. This plan for final cuts.? We get a preoperative plan evaluating our implants which was a size 3 femur and a size 2 tibia.? Next we brought in the Balta robot and sequentially made our femur cuts.? All excess bony cuts were then removed.? Finally we made our tibial cut.? Once this was done a standard PCL retractor was then placed into this position I excised the medial and?lateral meniscus.? The tibial cut was then subsequently removed all excess bony debris was removed.? I then utilized a?lamina silk winding machine operator and remove the posterior osteophytes.? At this point time sized the tibia and confirmed this was a size 2.? I utilized our blunt probe to establish rotation of tibial implant.? Once this was done I then placed my tibia size 2 trial in appropriate position and then subsequently placed tibial pins to hold this into place, then trialed up to a size 10 mm poly as well as a size 3 femur which was appropriately impacted in place knee was then subsequently brought into extension. Trials were then assessed,? this was stable with varus valgus stress in extension as well as had symmetrical translation when brought into flexion demonstrating symmetrical gaps. I had excellent balance gaps in flexion and extension with varus and valgus stresses.? At this point I was satisfied with these implants these were then verified and opened on the back table size 2 tibia, size 3 femur,? size 10 mm polythickness.? We did confirm appropriate gap balancing and stresses as well as alignment utilizing? Balta and were satisfied with this plan.? ?At this point time with my trials in place I then towel clip the patella everted this made appropriate measurements subsequently utilizing freehand technique performed by patellar resurfacing this was confirmed to be appropriate resection and subsequently sized to be a 29 mm asymmetric.? My drill peg guides were then clamped and appropriate position and appropriate position in the patella for appropriate tracking and parallel with the joint.? Pegs were drilled trial implant was placed and the knee was then subsequently ranged and found to have excellent patellar tracking.? Femur pegs were then drilled.? All checkpoints as well as guidepins and arrays were removed and appropriate counts made.? Satisfied with our tibial placement rotation I then utilized the keel punch and prepped the tibia.? At this point time all of our trial implants were removed.? The wound bed? was thoroughly irrigated and dried and prepped for cementation.? Cement was mixed on the back table.? Once cement was ready this was then covered onto the tibia and the tibial baseplate was then impacted and all excess cement was removed.? Next the polyethylene was then impacted into place on the tibial baseplate.? Next cement was placed onto the femur as well as under the femur implants and impacted in to place and all excess cement was extruded and removed.? Knee was taken into full extension? to clear all excess cement was removed.? Warm saline was placed over the joint.? I then towel clip patella and dried for cementation. cemented the patella into place.? This was all clamped and the cement was allowed to cure.? Thorough irrigation performed with pulse?lavage.? I then placed my periarticular injection while the cement was curing.? Once cured the knee was taken through range of motion and had excellent stability and gaps were balanced in flexion and extension.? Tourniquet was then deflated. hemostasis satisfactory with electrocautery. Vancomycin powder was placed in wound bed for antibiotic infection prophylaxis.? Next I then subsequently closed the capsule with Ethibond suture as well as a running strata fix suture.? Knee was then taken through range of motion 30 times.? Next the skin was then closed in?layered fashion of running stratifix sutures of deep and subcutenous tissue and skin.? ?closed in flexion and Prineo glue was then placed over the incision this allowed to cure.? Incision was covered with joey, with ABDs soft roll and Daquan wrap.? Patient was then awakened from anesthesia and taken to PACU in stable condition. Disposition: Patient taken to PACU in stable condition will be admitted to the floor for pain control PT/OT weight-bear as tolerated?left?lower extremity dressing changes as needed, DVT prophylaxis. Pain control. Patient will receive appropriate postoperative antibiotics. patient will be seen today by the internal medicine team for medical management.? Patient will follow up with the office in 2 weeks.? Patient understands agrees with current plan.? All questions answered.
--- NOTE | 2024-11-04 09:31 | XR_ITS ---
WS: [id number] Exam: XR knee LT 1-2V [id number] Date/Time of Exam: 11/04/2024 9:33 AM Reason For Exam: post L TKA Comparison 10/08/2024. LEFT total knee arthroplasty has been placed and is in excellent position. Postoperative changes in t he adjacent soft tissues.
--- NOTE | 2024-11-04 09:42 | PM.PACU ---
PACU note Narrative: Patient is a 69-year-old female just underwent a left total knee arthroplasty. Pt transferred to PACU in stable condition. Dressing is dry. pt is awake and alert. pt can wiggle toes and plantarflex and dorsiflex foot. pt able to perform straight leg raise, Femoral nerve intact. Distal pulses are palpable toes are warm and well-perfused. Cap refill is normal and under 2 seconds. Sensation to foot is intact. Pain is controlled. Exam: awake Disposition: admitted
[2024-11-04] MEDS: ondansetron 2 mg/ML SDV 2 mL 4 MG IVP (09:49)
--- NOTE | 2024-11-04 10:15 | ANE.PACU2 ---
Inpatient post-anesthesia follow up: Airway intact: Yes Vital signs: Temperature 97.1 F Pulse Rate 73 Respiratory Rate 18 Blood Pressure 128/73 Pulse Oximetry 94 Oxygen Delivery Me thod Room Air Oxygen Flow Rate Fraction of Inspir ed Oxygen Hydration adequate: Yes Pain level: 2 Mental status: Baseline
--- NOTE | 2024-11-04 10:30 | ANES.PROC ---
Anesthesia Procedures Procedure/Date: 11/04/24 Nerve Block ^: Nerve Block 1: Main Anesthesia: general anesthesia Time Out Performed: Yes Consent: requested by attending/covering physician and from patient Nerve block location: adductor canal Anesthesia monitors applied: pulse oximetry, EKG, BP cuff and oxygen Nerve block position: supine Anesthetic Used: ropivicaine 0.5% Amount of anesthesia used (mL): 20 Ultrasound used to: recognize landmarks Nerve Stimulator Used?: Yes Interscalene/Femoral BLK: other needle (pjunk 4inch) Injection: neg aspiration of heme Patient Tolerated Procedure: well Complications: none Additional Comments: decadron 4mg added to block
[2024-11-04] MEDS: ketorolac 30 mg/mL INJ 15 MG IVP ×2 (10:41→16:56)
[2024-11-04] MEDS: chlorhexidine gluconate 0.12% Btl 473 mL 30 ML MUCOUS MEM ×3 (13:29→21:35)
[2024-11-04] MEDS: tranexamic acid 1,000 MG/100 ML PREMIX 600 MG IV (13:29)
[2024-11-04] MEDS: dextrose 5%-lactated ringers 1,000 ML 75 ML IV (13:38)
[2024-11-04 15:25] LABS: Iron 117 ug/dL (37-145); Percent Saturation 40.7 % (20-50); Total Iron Binding Capacity 287 mcg/dl; Unsaturated Iron Binding 170 ug/dL (112-347)
[2024-11-04 15:40] LABS: Vitamin B12 1454 pg/mL (232-1245)
--- NOTE | 2024-11-04 15:51 | PC.NURSE ---
1505 RECEIVED PATIENT FROM OB VIA BED.
[2024-11-04] MEDS: docusate sodium 100 mg Capsule PO (16:55)
[2024-11-04] MEDS: calcium carb-vit d 600mg/400unit 1 Tablet 1 EACH PO (16:55)
[2024-11-04] MEDS: mupirocin oint 22 gm 1 APPLIC NASAL (16:56)
[2024-11-04] MEDS: iron polysaccharide complex 150 mg Capsule PO (18:41)
--- NOTE | 2024-11-04 18:45 | P.CONIM_ITS ---
Providers/Reason For Consult 2 Consulting Physician/Specialty*: Internal medicine Reason for Consult*: Medical comorbidities Requesting Physician: Dr. Browne Attending Physician: Philip Browne DO Primary Care Provider: FRANSISCA Aguero History of Present Illness History of Present Illness Keli Crespo is a 69 year old female with past medical history of hypothyroidism who underwent left total knee arthroplasty. Reported EBL of 20 cc. Medical opinion requested given history of hypothyroidism in the past. Currently resting. Hemodynamically stable. Saturating well on room air. Tolerating diet. Review of Systems 2 General: Reports: 10 or more systems reviewed and unremarkable except in HPI and below Const: Denies: fever(s), chills, body aches, change in appetite, change in weight, malaise, night sweats, diaphoresis, change in sleep pattern, daytime sleepiness or snoring Eyes: Denies: change in vision, blurry vision, photophobia, eye discomfort or eye discharge ENMT: Denies: throat pain, enlarged tonsils, hoarseness, mouth pain, oral sores, dry mouth, tinnitus, nasal congestion or post nasal drip Card: Denies: chest pain, palpitations, irregular heart rhythm, edema, swelling of feet/ankles, lightheadedness, syncope, pre-syncope, dyspnea on exertion, orthopnea, leg pain with exertion or acrocyanosis Resp: Denies: dyspnea, productive cough, non-productive cough, wheezing, stridor, pain on inspiration, change in phlegm color, hemoptysis or chest congestion GI: Denies: abdominal pain, nausea, vomiting, hematemesis, coffee ground emesis, dysphagia, heartburn, diarrhea, constipation, bloating, GI cramping, change in bowel habits, pain on defecation, hematochezia or melena : Denies: flank pain, dysuria, urinary frequency, urinary urgency, urinary hesitancy, nocturia or hematuria Musc: Denies: neck pain, back pain, extremity pain, joint pain, joint swelling, joint redness, joint stiffness or limited range of motion Neuro: Denies: headache(s), numbness in extremities, weakness in extremities, sensory changes, lack of coordination, difficulty walking, frequent falls, dizziness, vertigo, confusion, Slurred speech present, difficulty communicating thoughts or seizure-like activity Psych: Denies: anxiety, depression, mood swings, panic attacks, hopelessness or irritability Endo: Denies: polyuria, polydipsia, tired all the time, cold intolerance, excessive sweating, flushing or heat intolerance Jonathan/Lymph: Denies: easy bruising or easy bleeding All/Imm: Denies: tongue swelling, facial swelling or acute wheezing Medications/Allergies Home Medications Medication Instructions Recorded Confirmed Last Taken Type coenzyme Q10 100 mg capsule 100 mg PO DAILY 08/07/20 11/04/24 11/03/24 History (CoQ-10) glucosamine sulfate 500 mg tablet 500 mg PO BID 08/07/20 11/04/24 11/03/24 History (Glucosamine) omega-3 fatty acids 1,000 mg 1,000 mg PO DAILY 08/07/20 10/31/24 10/26/24 History capsule (Fish Oil Concentrate) albuterol sulfate 2.5 mg/3 mL 2.5 mg inhalation Q4H PRN sob 04/01/21 10/31/24 Unknown History (0.083 %) solution for nebulization biotin 2,500 mcg capsule 5 mg PO DAILY 11/23/23 11/04/24 11/03/24 History calcium 600 mg (as 600 cap PO DAILY 11/23/23 11/04/24 11/03/24 History carbonate)-vitamin D3 10 mcg (400 unit) capsule flaxseed oil-omega 3,6,9-fatty 1,300 cap PO DAILY 11/23/23 11/04/24 11/03/24 History acids 1,300 mg-670 mg-155 mg capsule mecobalamin (vitamin B12) 1,000 1,000 mcg PO DAILY 11/23/23 11/04/24 11/03/24 History mcg chewable tablet multivitamin 1 tab PO DAILY 11/23/23 10/31/24 10/30/24 History riboflavin (vitamin B2) 100 mg 100 mg PO DAILY 11/23/23 11/04/24 11/03/24 History tablet levothyroxine 112 mcg tablet 112 mcg PO DAILY #90 tabs 10/17/24 11/04/24 11/03/24 Rx montelukast 10 mg tablet 10 mg PO DAILY #90 tabs 10/17/24 11/04/24 11/03/24 Rx simvastatin 40 mg tablet 40 mg PO DAILY #90 tabs 10/17/24 10/31/24 10/23/24 Rx apixaban 2.5 mg tablet (Eliquis) 2.5 mg PO BID 2 weeks #28 tabs 11/04/24 Unknown Rx ondansetron 4 mg disintegrating 4 mg PO Q8H PRN nausea and 11/04/24 Unknown Rx tablet vomiting 3 days #9 tabs hydrocodone 5 mg-acetaminophen 325 1 tab PO Q4H PRN Moderate Pain 7 11/05/24 Unknown Rx mg tablet days #42 tabs methocarbamol 500 mg tablet 500 mg PO TID PRN muscle 11/05/24 Unknown Rx spasms/pain 14 days #42 tabs Allergies Allergy/AdvReac Type Severity Reaction Status Date / Time codeine Allergy Intermediate sick Verified 11/04/24 06:03 morphine Allergy Intermediate sick Verified 11/04/24 06:03 Opioids - Morphine Analogues Allergy Intermediate sick Verified 11/04/24 06:03 Penicillins Allergy rash Verified 11/04/24 06:03 tetanus and diphtheria Allergy ALGY-Redness Verified 11/04/24 06:03 toxoids of Skin bee Allergy anaphylaxis Uncoded 11/04/24 06:03 fire ants Allergy anaphylaxis Uncoded 11/04/24 06:03 Current Medications Generic Name Dose Route Start Last Admin Trade Name Freq PRN Reason Stop Dose Admin Calcium Carbonate 1 each 11/04/24 18:00 11/04/24 16:55 Calcium Carb-Vit D 600mg/400unit 1 Tablet PO 1 each BID SONY Administration Cefazolin Sodium 2,000 mg 11/04/24 15:00 11/04/24 15:49 Cefazolin 2,000 Mg Sdv IVP 11/05/24 07:01 2,000 mg Q8H SONY Administration Chlorhexidine Gluconate 30 ml 11/04/24 13:00 11/04/24 16:56 Chlorhexidine Gluconate 0.12% Btl 473 Ml MUCOUS MEM 30 ml QID SONY Administration Docusate Sodium 100 mg 11/04/24 18:00 11/04/24 16:55 Docusate Sodium 100 Mg Capsule PO 100 mg BID SONY Administration Acetaminophen 1,000 mg in 100 mls @ 400 mls/hr 11/04/24 14:30 11/04/24 14:55 Acetaminophen IV 11/05/24 06:44 400 mls/hr Q8H SONY Administration Dextrose/Lactated Ringer's 1,000 mls @ 75 mls/hr 11/04/24 12:15 11/04/24 13:38 Dextrose 5%-Lactated Ringers IV 75 mls/hr .[id number] SONY Administration Ketorolac Tromethamine 15 mg 11/04/24 10:19 11/04/24 16:56 Ketorolac 30 Mg/Ml Inj IVP 15 mg Q6H PRN Administration MODERATE TO SEVERE PAIN Mupirocin 1 applic 11/04/24 18:00 11/04/24 16:56 Mupirocin Oint 22 Gm NASAL 11/09/24 17:59 1 applic BID SONY Administration Protocol Polysaccharide Iron Complex 150 mg 11/04/24 18:00 11/04/24 18:41 Iron Polysaccharide Complex 150 Mg Capsule PO 150 mg BIDWM SONY Administration PFSH Acute 2 PFSH: Medical History Osteoarthritis involving multiple joints on both sides of body bilateral knees, Seasonal allergic rhinitis COPD (chronic obstructive pulmonary disease) Vitamin D deficiency Hypothyroidism Mixed hyperlipidemia Surgical History H/O lumpectomy Right S/P breast biopsy, left Family History Mother Cancer breast Father Cancer lung CAD (coronary artery disease) Sister Cancer anal Sister Cancer Mother Cancer breast Father Cancer lung and bladder CAD (coronary artery disease) Sister Cancer rectal Sister Cancer melanoma or basal on breast bone Social History Smoking and tobacco/nicotine status: never used tobacco/nicotine Second hand smoke exposure: Yes Alcohol intake: current Alcohol type: wine Substance/Drug Use: never Lives independently: Yes Household members: spouse Marital status: service: No Current occupational status: retired Pets and animals: Yes Do you think of yourself as: Straight/Heterosexual Current gender identity: Female Vitals/I&O/Wt Last Vital Signs Temp 98 F 11/04/24 17:20 Pulse 71 11/04/24 17:20 Resp 15 11/04/24 17:20 BP 122/73 11/04/24 17:20 Pulse Ox 97 11/04/24 17:20 O2 Del Method Room Air 11/04/24 17:20 11/04/24 11/04/24 11/04/24 06:59 14:59 22:59 Intake Total 2099 / 2099 Output Total 1075 / 1075 1000 / 2075 Balance 1025 / 1025 -1000 / 25 Weight last 48 hrs Weight 90.718 kg Weight 90.718 kg Physical Exam 2 Narrative: General: No acute distress, AO x3 HEENT: PERRLA, pupils bilaterally equal and reactive Chest: Normal vesicular breath sounds, no added sounds, equal good air entry bilaterally CVS: S1-S2 regular, no murmurs, no tachycardia, no gallops, no rubs Abdomen: Soft, nontender, no organomegaly, bowel sounds present Neuro: No focal deficits, no facial deformity, AO x3, power 5/5 in all limbs Urinary Catheter Management: Schmidt: Cath Placed During This Visit: yes Reason for Continuing Indwelling Catheter: Accurate Measurement of Urinary Output in Critically Ill Patients Urinary Catheter Date of Insertion: 11/04/24 Urinary Catheter Time of Insertion: 07:38 Data 11/05/24 05:10 11/05/24 05:10 A&P Assessment and plan (1) Encounter for postoperative care: Monitor hemoglobin. Perioperative antibiotic, anticoagulation as per primary team. Physical therapy as a primary team. (2) S/P total knee arthroplasty: (3) Hypothyroidism: Appreciate recent TSH. Continue home dose of levothyroxine. Qualifiers: Hypothyroidism type: acquired Qualified Code(s): E03.9 - Hypothyroidism, unspecified (4) COPD (chronic obstructive pulmonary disease): No acute exacerbation. Continue to monitor. DuoNeb as needed. Qualifiers: COPD type: unspecified COPD Qualified Code(s): J44.9 - Chronic obstructive pulmonary disease, unspecified (5) Vitamin D deficiency: Chronic history. Continue with outpatient at calcium and vitamin D supplements. Repeat levels. Plan Thank you for involving us in care of Ms. Powell. Please call back with any question. Consult Attestations 2 Medical Necessity Statement: As per primary team. Diagnoses Encounter for postoperative care Z48.89 S/P total knee arthroplasty Z96.659 Acquired hypothyroidism E03.9 Hypothyroidism type: acquired Chronic obstructive pulmonary disease, unspecified COPD type J44.9 COPD type: unspecified COPD Vitamin D deficiency E55.9
[2024-11-04] MEDS: HYDROcodone-acetaminophen 5-325 mg Tablet 1 TAB PO (19:12)
[2024-11-05] MEDS: ketorolac 30 mg/mL INJ 15 MG IVP (00:40)
[2024-11-05 04:00] VITALS: BP 150/95; PULSE 62; RESP 16; TEMP 36.4; O2SAT 98
[2024-11-05 05:20] LABS: Basophils % 0.3 %; Eosinophils # 0.1 10^3/uL (0.0-0.8); Hematocrit 45.5 % (36-47); Lymphocytes # 1.8 10^3/uL (0.8-4.8); Lymphocytes % 17.5 %; Mean Corpuscular HGB Conc 31.9 g/dL (30-55); Mean Corpuscular Hemoglobin 28.9 pg (27-33); Mean Corpuscular Volume 90.8 fl (85-98); Mean Platelet Volume 9.7 fL (7.4-10.4); Monocytes # 0.7 10^3/uL (0.2-0.9); Monocytes % 7.1 %; Neutrophils # 7.64 10^3/uL (1.8-7.7); Neutrophils % 73.8 %; Nucleated Red Blood Cells % 0 %; Platelet Count 263 10^3/cmm (157-399); Red Blood Count 5.01 10^6/uL (3.85-5.65); Red Cell Distribution Width 13.3 % (12.1-15.1); White Blood Count 10.34 10^3/uL (3.29-11.43)
[2024-11-05] MEDS: HYDROcodone-acetaminophen 5-325 mg Tablet 1 TAB PO (05:39)
[2024-11-05 05:48] LABS: Anion Gap 13.1 (5-19); Blood Urea Nitrogen 12 mg/dL (8-23); Calcium 9.8 mg/dL (8.5-10.5); Carbon Dioxide 26 mmol/L (22-29); Chloride 106 mmol/L (98-107); Creatinine Clr Calc Pharmacy 68.5357; Glomerular Filtration Rate 98.8 mL/min (90-130); Glucose 109 mg/dL (65-115); Magnesium 2.1 mg/dL (1.7-2.3); Osmolality Calculated 292 mOsm/kg (285-295); Potassium 4.1 mmol/L (3.5-5.1); Sodium 141 mmol/L (136-145)
[2024-11-05 06:08] LABS: Folate Level > 20.0 ng/mL (4.8-37.3)
[2024-11-05] MEDS: ceFAZolin 2,000 mg SDV 2000 MG IVP (07:43)
[2024-11-05] MEDS: acetaminophen 1,000 MG/100 ML PIGGYBACK 400 MG IV (07:43)
[2024-11-05] MEDS: calcium carb-vit d 600mg/400unit 1 Tablet 1 EACH PO (08:04)
[2024-11-05] MEDS: chlorhexidine gluconate 0.12% Btl 473 mL 30 ML MUCOUS MEM (08:04)
[2024-11-05] MEDS: iron polysaccharide complex 150 mg Capsule PO (08:04)
[2024-11-05] MEDS: apixaban 5 mg Tablet 2.5 MG PO (08:04)
[2024-11-05] MEDS: multivitamin therapeutic Tablet 1 TAB PO (08:04)
[2024-11-05] MEDS: mupirocin oint 22 gm 1 APPLIC NASAL (08:05)
[2024-11-05] MEDS: docusate sodium 100 mg Capsule PO (08:05)
--- NOTE | 2024-11-05 08:30 | P.DS_ITS ---
Discharge Providers Date of Admission: 11/04/24 10:11 Date of Discharge: November 05, 2024 Attending Provider at Admission: Philip Diehl DO Attending Provider at Discharge: Philip Dielh DO Consults: hospitalist-Dr Mejia Primary Care Provider: FRANSISCA Aguero Diagnoses at Discharge Discharge Diagnosis (1) Encounter for postoperative care: Status: Acute (2) S/P total knee arthroplasty: Status: Acute (3) Hypothyroidism: Status: Acute Qualifiers: Hypothyroidism type: acquired Qualified Code(s): E03.9 - Hypothyroi dism, unspecified (4) COPD (chronic obstructive pulmonary disease): Status: Acute Qualifiers: COPD type: unspecified COPD Qualified Code(s): J44.9 - Chronic obstructive pulmonary disease, unspecified (5) Vitamin D deficiency: Status: Acute Reason for Visit Reason for Visit: M17.0 Brief History: s/p L TKA Hospital Course Hospital Course Patient presented to the preoperative holding area with plan for [left ] total knee arthroplasty after patient has been worked up in the outpatient setting for failed conservative treatment of [left ] knee degenerative joint disease. Once cleared by anesthesia for surgery patient subsequently was taken back to the operative suite underwent anesthesia per anesthesia department and then subsequently underwent a [left ] total knee arthroplasty. Procedure was performed without any complications patient was taken to PACU in stable condition patient recovered well in PACU and then was admitted to the floor postoperatively internal medicine was consulted and on board for medical management and assistance with care. Patient received appropriate PT/OT, postoperative antibiotics, postoperative TXA, pain control, postoperative DVT prophylaxis. Elevation and ice. Patient encouraged for knee range of motion allowed weightbearing as tolerated to the operative lower extremity. Dressing was changed as needed, labs were monitored daily. Patient recovered well po stoperatively and worked well and progressed well with therapy. It was determined on postoperative day [ 1] the patient was stable for discharge from an orthopedic standpoint and medicine. Patient was comfortable with discharge and plan was discharged home. Patient received appropriate discharge instructions as well as pain medication and DVT prophylaxis postoperatively. Given appropriate instructions for dressing management. Patient will follow-up with Dr. Diehl/orthopedics in the office in 2 weeks. All questions answered. Understand if there is any issues questions or concerns and contact the office. Physical Exam Narrative: left knee examination: Dressings on in place is clean dry and intact, calf soft nontender compartment soft compressible normal postoperative swelling and tenderness palpation about the left knee patient is able to plantarflex and dorsiflex ankle sensation intac t light touch distally. Distal pulses palpable. Urinary Catheter Management: Schmidt: Cath Placed During This Visit: yes Reason for Continuing Indwelling Catheter: Perioperative Use in Selected Surgeries Urinary Catheter Date of Insertion: 11/04/24 Urinary Catheter Time of Insertion: 07:38 Discharge Data Studies Completed and Pending Completed Studies During Hospitalization Category Date Time Status XR knee LT 1-2V [id number] Routine Exams 11/04/24 09:31 Completed Pending at discharge Category Date Time Status Basic Metabolic Panel AM LABS Lab 11/06/24 04:00 Ordered Basic Metabolic Panel AM LABS Lab 11/07/24 04:00 Ordered Complete Blood Count w/Auto AM LABS Lab 11/06/24 04:00 Ordered Complete Blood Count w/Auto AM LABS Lab 11/07/24 04:00 Ordered MAG [Magnesium] AM LABS Lab 11/06/24 04:00 Ordered MAG [Magnesium] AM LABS Lab 11/07/24 04:00 Ordered Laboratory Results WBC 10.34 10^3/uL (3.29-11.43) 11/05/24 05:10 RBC 5.01 10^6/uL (3.85-5.65) 11/05/24 05:10 Hgb 14.50 g/dL (11.27-16.99) 11/05/24 05:10 Hct 45.5 % (36-47) 11/05/24 05:10 MCV 90.8 fl (85-98) 11/05/24 05:10 MCH 28.9 pg (27-33) 11/05/24 05:10 MCHC 31.9 g/dL (30-55) 11/05/24 05:10 RDW 13.3 % (12.1-15.1) 11/05/24 05:10 Plt Count 263 10^3/cmm (157-399) 11/05/24 05:10 MPV 9.7 fL (7.4-10.4) 11/05/24 05:10 Neut % (Auto) 73.8 % 11/05/24 05:10 Lymph % (Auto) 17.5 % 11/05/24 05:10 Barnes % (Auto) 7.1 % 11/05/24 05:10 Eos % (Auto) 1.0 % 11/05/24 05:10 Baso % (Auto) 0.3 % 11/05/24 05:10 Neut # (Auto) 7.64 10^3/uL (1.8-7.7) 11/05/24 05:10 Lymph # (Auto) 1.8 10^3/uL (0.8-4.8) 11/05/24 05:10 Barnes # (Auto) 0.7 10^3/uL (0.2-0.9) 11/05/24 05:10 Eos # (Auto) 0.1 10^3/uL (0.0-0.8) 11/05/24 05:10 Baso # (Auto) 0.0 10^3/uL (0.0-0.1) 11/05/24 05:10 Nucleated RBC % (auto) 0 % 11/05/24 05:10 Nucleated RBCs # 0.0 /100WBC 11/05/24 05:10 Sodium 141 mmol/L (136-145) 11/05/24 05:10 Potassium 4.1 mmol/L (3.5-5.1) 11/05/24 05:10 Chloride 106 mmol/L (98-107) 11/05/24 05:10 Carbon Dioxide 26 mmol/L (22-29) 11/05/24 05:10 Anion Gap 13.1 (5-19) 11/05/24 05:10 BUN 12 mg/dL (8-23) 11/05/24 05:10 Creatinine 0.6 mg/dL (0.5-0.9) 11/05/24 05:10 GFR Calculation 98.8 mL/min (90-130) 11/05/24 05:10 Glucose 109 mg/dL (65-115) 11/05/24 05:10 Calculated Osmolality 292 mOsm/kg (285-295) 11/05/24 05:10 Calcium 9.8 mg/dL (8.5-10.5) 11/05/24 05:10 Magnesium 2.1 mg/dL (1.7-2.3) 11/05/24 05:10 Iron 117 ug/dL (37-145) 11/04/24 06:25 TIBC 287 mcg/dl 11/04/24 06:25 % Saturation 40.7 % (20-50) 11/04/24 06:25 Unsat Iron Binding 170 ug/dL (112-347) 11/04/24 06:25 Vitamin B12 1454 pg/mL (232-1245) H 11/04/24 06:25 Folate > 20.0 ng/mL (4.8-37.3) 11/05/24 05:10 Blood Type O Positive 11/04/24 06:25 Rho(D) Type Rh positive 11/04/24 06:25 Antibody Screen Negative 11/04/24 06:25 Vitals Last Vital Signs Temp 97.6 F 11/05/24 04:00 Pulse 62 11/05/24 04:00 Resp 16 11/05/24 04:00 BP 150/95 11/05/24 04:00 Pulse Ox 98 11/05/24 04:00 O2 Del Method Room Air 11/05/24 04:00 Discharge Plan Discharge Patient Disposition: Home Health Service Condition: Stable Prescriptions: Continued omega-3 fatty acids [Fish Oil Concentrate] 1,000 mg capsule 1,000 mg PO DAILY coenzyme Q10 [CoQ-10] 100 mg capsule 100 mg PO DAILY glucosamine sulfate [Glucosamine] 500 mg tablet 500 mg PO BID Rx Instructions: administer with meals albuterol sulfate 2.5 mg /3 mL (0.083 %) solution for nebulization 2.5 mg inhalation Q4H PRN (Reason: sob) multivitamin Tablet 1 tab PO DAILY riboflavin (vitamin B2) 100 mg tablet 100 mg PO DAILY biotin 2,500 mcg capsule 5 mg PO DAILY calcium carbonate-vitamin D3 600 mg-10 mcg (400 unit) capsule 600 cap PO DAILY flaxseed-omega3,6,9-fatty acid 1,300-670-155 mg capsule 1,300 cap PO DAILY mecobalamin (vitamin B12) 1,000 mcg tablet,chewable 1,000 mcg PO DAILY simvastatin 40 mg tablet 40 mg PO DAILY Qty: 90 1RF Rx Instructions: TAKE 1 TABLET BY MOUTH EVERY DAY montelukast 10 mg tablet 10 mg PO DAILY Qty: 90 1RF Rx Instructions: TAKE 1 TABLET BY MOUTH EVERY DAY levothyroxine 112 mcg tablet 112 mcg PO DAILY Qty: 90 1RF Rx Instructions: TAKE 1 TABLET DAILY No Action hydrocodone-acetaminophen 7.5-325 mg tablet 1 tab PO Q4H PRN (Reason: pain) 7 Days Qty: 42 0RF Discharge Orders: Discharge Order (Routine); Ordered 11/05/24 Ordered By: Philip Diehl Other Ambulatory Orders: Physical Therapy Eval and Treat Outpatient (Order) Timeframe: 2 Days Facility: [facility] - Location: Physical Therapy [place] Ordered By: Philip Diehl Referrals: Philip Diehl, [Physician] - (FOLLOW UP WITH DR. DIEHL ON 12/06/24 AT 1115) Discharge Diet: Regular Discharge Activity: Limit activity as instructed Patient Instructions: Hydrocodone/Acetaminophen (By mouth) (Vicodin, [place]), Methocarbamol (By mouth) (Robaxin, Robaxin-750), Ondansetron (By mouth) (Zofran, Zofran ODT, Zuplenz), Apixaban (By mouth) (Eliquis), Acute Wound Care (DC), Opioid Safety, Post Anesthesia Care Activity Restrictions/Additional Instructions: Orthopedic discharge instructions: Lizbeth Dressing--Keep dressing on and dry. After 3 days you can remove some of the dressing and shower. disconnect battery pack when showering. Lizbeth dressing will stay on until follow up appt in 2 weeks. The battery pack for the dressing will at 5-7 days. Battery pack can be removed and discarded once batteries . Patient may weight-bear as tolerate to the operative extremity Utilize walker as needed Encourage knee range of motion Supplement with calcium vitamin D for bone health and healing Ice and elevate as needed for pain and swelling Take pain medication as prescribed Take antinausea medication as needed Pain medication can cause constipation. take [id number] stool softeners and or MiraLAX. Take prescribed Eliquis twice daily for the next 14 days for blood clot prevention May supplement for pain with Tylenol [id number] as needed, do not take more than 3000 mg Tylenol in 1 day No baths or soaks Follow-up in the orthopedic office in 2 weeks Contact the office for any questions or concerns Discharge Attestations Time Spent in Discharge Care*: less than 30 min Quality Metrics Clinical Quality Measures [ No reported AMI, CVA or VTE this stay] Coding Level of Care Code Acute Code for Chg Fwd Diagnoses Encounter for postoperative care Z48.89 S/P total knee arthroplasty Z96.659 Acquired hypothyroidism E03.9 Hypothyroidism type: acquired Chronic obstructive pulmonary disease, unspecified COPD type J44.9 COPD type: unspecified COPD Vitamin D deficiency E55.9
[2024-11-05 11:22] VITALS: BP 145/82; PULSE 73; RESP 16; TEMP 36.7; O2SAT 95
== END 2024-11-05 11:15 | disposition home health service (06) ==
LOC: OBGYN 10:15
PROVIDERS: Physician Assistant; Student in an Organized Health Care Education/Training Program; Admitting Provider Student in an Organized Health Care Education/Training Program; PCP Nurse Practitioner Family; Visit Provider Student in an Organized Health Care Education/Training Program
PROC: 8E0Y0CZ Robotic Assisted Procedure of Lower Extremity, Open Approach (ICD-10-PCS; CPT 27447; principal; 2024-11-04 07:00)
DX: M17.12 Unilateral primary osteoarthritis, left knee (principal); E03.9 Hypothyroidism, unspecified; J44.9 Chronic obstructive pulmonary disease, unspecified; E78.2 Mixed hyperlipidemia
CPT/HCPCS: 27447; 20985; 36415; 51702; 73560; 80048; 82607; 82746; 83540; 83550; 83735; 85025; 86850; 86900; 96374; 96376; 97110; 97116; 97161; 97165; C1776; G0378; J0131; J0171; J0690; J1885; J2250; J2371; J2405; J2704; J2795; J3370; J7030; J7121

== ENCOUNTER 2024-11-07 06:00 | Outpatient (RCR) | payer MEDICARE, OTHER, SELFPAY | END 2024-11-26 23:59 | disposition home or self-care (01) | LOC: WPT 06:00 | PROVIDERS: Visit Provider Student in an Organized Health Care Education/Training Program | DX: Z47.1 Aftercare following joint replacement surgery (principal); Z96.652 Presence of left artificial knee joint | CPT/HCPCS: 97110; 97112; 97161; 97530 ==

== ENCOUNTER 2024-11-27 06:00 | Outpatient (RCR) | payer MEDICARE, OTHER, SELFPAY | END 2024-12-27 23:59 | disposition home or self-care (01) | LOC: WPT 06:00 | PROVIDERS: Visit Provider Student in an Organized Health Care Education/Training Program | DX: Z47.1 Aftercare following joint replacement surgery (principal); Z96.652 Presence of left artificial knee joint | CPT/HCPCS: 97110; 97112; 97530 ==

== ENCOUNTER → 2024-12-05 10:15 | Outpatient (BNVA) | payer MEDICARE, OTHER, SELFPAY | PROVIDERS: Visit Provider Physician Assistant | DX: Z48.89 Encounter for other specified surgical aftercare (principal); Z96.652 Presence of left artificial knee joint | CPT/HCPCS: 73560; 73565; 99024 ==

== ENCOUNTER → 2025-01-01 11:12 | Outpatient (BNVA) | payer MEDICARE, OTHER, SELFPAY | PROVIDERS: Visit Provider Physician Assistant | DX: Z96.653 Presence of artificial knee joint, bilateral (principal) | CPT/HCPCS: 17000; 73560; 73565; 99213 ==

== ENCOUNTER 2025-01-15 13:02 | Outpatient (RCR) | payer MEDICARE, OTHER, SELFPAY | END 2025-01-24 23:59 | disposition home or self-care (01) | LOC: WPT 13:02 | PROVIDERS: Visit Provider Student in an Organized Health Care Education/Training Program | DX: Z47.1 Aftercare following joint replacement surgery (principal); Z96.652 Presence of left artificial knee joint | CPT/HCPCS: 97110; 97112; 97530 ==

== ENCOUNTER 2025-04-02 09:16 | Outpatient (CLI) | payer MEDICARE, OTHER, SELFPAY ==
--- NOTE | 2025-04-02 09:20 | MM_ITS ---
WS: [id number] BILATERAL SCREENING DIGITAL TOMOSYNTHESIS MAMMOGRAM WITH CAD HISTORY: SCREENING COMPARISON: 10/30/2023, 10/28/2022 Bilateral CC and MLO views with tomosynthesis and synthetic mammography submitted. Computer aided detection analyzed. Breast composition: The breasts are heterogeneously dense, which may obscure small masses. No suspicious masses, microcalcifications or architectural distortion. Numerous benign calcifications. There is a prior biopsy clip in the posterior LEFT breast. No mass or calcification surrounding the clip. No new areas of distortion. MM/MM scr tomosynthesis [id number] IMPRESSION: BI-RADS: 2 - Benign FOLLOW UP: 1 Year Follow-up
== END 2025-04-02 09:17 | disposition home or self-care (01) ==
LOC: MOBLMAM 09:17
PROVIDERS: PCP Nurse Practitioner Family; Visit Provider Nurse Practitioner Family
DX: Z12.31 Encounter for screening mammogram for malignant neoplasm of breast (principal); R92.333 Mammographic heterogeneous density, bilateral breasts; R92.1 Mammographic calcification found on diagnostic imaging of breast
CPT/HCPCS: 77063; 77067

== ENCOUNTER → 2025-04-30 09:42 | Outpatient (BNVA) | payer MEDICARE, OTHER, SELFPAY | PROVIDERS: PCP Nurse Practitioner Family; Visit Provider Podiatrist Foot & Ankle Surgery | DX: Z96.653 Presence of artificial knee joint, bilateral (principal) | CPT/HCPCS: 73560; 73565; 73630; 99213 ==

== ENCOUNTER 2025-07-01 14:12 | Outpatient (CLI) | payer MEDICARE, OTHER, SELFPAY | END 2025-07-01 14:13 | disposition home or self-care (01) | LOC: SPT 14:13 | PROVIDERS: PCP Nurse Practitioner Family; Visit Provider Podiatrist Foot & Ankle Surgery | DX: Z46.89 Encounter for fitting and adjustment of other specified devices (principal); M21.41 Flat foot [pes planus] (acquired), right foot; M21.42 Flat foot [pes planus] (acquired), left foot | CPT/HCPCS: L3030 ==